=== PATIENT | female | born 1985 | race American Indian/Alaskan Native ===

== ENCOUNTER 2019-09-05 09:33 | Inpatient (IN) | payer OTHER ==
[2019-09-05] MEDS ORDERED: TERBUTALINE 1 MG/1 ML INJ SUB-Q PRN (10:11)
[2019-09-05] MEDS ORDERED: LIDOCAINE (2%) 20 MG/1 ML VIAL 20 ML MDV INFILTRATI ONE (10:11)
[2019-09-05] MEDS ORDERED: ONDANSETRON 4 MG/2 ML INJ IV PRN (10:11)
[2019-09-05] MEDS ORDERED: ePHEDrine SULFATE 50 MG/1 ML INJ IV PRN ×2 (10:11→16:14)
[2019-09-05] MEDS ORDERED: MINERAL OIL 30 ML ORAL LIQD PO PRN (10:11)
[2019-09-05] MEDS ORDERED: LACTATED RINGERS 1,000 ML IV SCH (11:00)
[2019-09-05 11:32] LABS: Hematocrit 28.5 % (30.3-42.9); Mean Corpuscular HGB Conc 32 % (30-34); Mean Corpuscular Volume 74 fl (79-97); Platelet Count 291 K/mm3 (140-440); Red Blood Count 3.84 M/mm3 (3.65-5.03); Red Cell Distribution Width 18.7 % (13.2-15.2)
--- NOTE | 2019-09-05 11:34 | History and Physical Report ---
History of Present Illness Date of examination: 09/05/19 Date of admission: 09/05/19 09:33 Chief complaint: IOL for IUGR and HTN, patient has been noncompliant with care History of present illness: EDC Calculations LMP: 09/26/2019 Past History : 4 Term Births: 2 Living Children: 1 Para: 2 Aborta: 1 Elect. Ab: 1 # 1 Delivery date: 07/28/2010 Weeks Gestation: 39 labor: no Delivery type: Anesthesia type: epidural Delivery location: [place] Sex: Female weight: 6-11 Comments: no complications # 2 Delivery date: 2012 Weeks Gestation: term Delivery type: Delivery location: [facility] Sex: Male weight: 7#7 # 3 Delivery date: 2013 Delivery type: EAB Past Medical History: Anxiety Fibroids HTN - on labetalol Past Surgical History: Reviewed history from 07/15/2012 and no changes required: oral Past Medical History Abnormal PAP: positive KATHI Exposure: negative Infertility: negative Uterine Anomaly: negative Uterine Surgery (not C/S): negative Other Gynecologic Problems: negative Medical History Comments: Pt is followed by [facility] annually d/t FH Family Hx: No Family History of Breast Cancer No Family History of Colon Cancer No Family History of Ovarvian Cancer No Family History of DVT/PE on OCP Mother passed of heart attack @ 40 Social Hx: Patient is no ETOH/Drugs/Smoking no pets not working Infection History Hx of STD: none HIV Risk Eval: low risk Hepatitis B Risk Eval: low risk Personal hx. of genital herpes: no Genetic History ADVANCED MATERNAL AGE Congenital Heart Defect: Mom: no Dad: no Suze Disease: Mom: no Dad: no Thalassemia Mom: no Dad: no Neural Tube Defect Mom: no Dad: no Down's Syndrome Mom: no Dad: no Jimy-Sachs Mom: no Dad: no Sickle Cell Disease/Trait Mom: no Dad: no Hemophilia Mom: no Dad: no Muscular Dystrophy Mom: no Dad: no Cystic Fibrosis Mom: no Dad: no [place] Chorea Mom: no Dad: no Mental Retardation Mom: no Dad: no Fragile X Mom: no Dad: no Other Genetic/Chromosomal Disorder Mom: no Dad: no Child w/other defect Mom: no Dad: no Enviromental Exposures Xray Exposure: no Medication, drug, or alcohol use since LMP: no Chemical/Other Exposure: no Exposure to Cat Liter: no Hx of Parvovirus (Fifth Disease): no Occupational Exposure to Children: none Active Medications (reviewed today): LO LOESTRIN 10/03 (NORETHIN DEMETRIUS-ETH ESTRAD-FE TABS) () 1 po qd Current Allergies: No known allergies Past History Past Medical History: other (see HPI) Past Surgical History: other (see HPI) APPEALS EXAMINER History: other (see HPI) Family/Genetic History: other (see HPI) - Obstetrical History Expected Date of Delivery: 09/26/19 Actual Gestation: 37 Week(s) 0 Day(s) : 4 Para: 2 Hx # Term Pregnancies: 2 Number of Pregnancies: 0 Spontaneous Abortions: 0 Induced : 1 Number of Living Children: 2 Medications and Allergies Allergies Allergy/AdvReac Type Severity Reaction Status Date / Time No Known Allergies Allergy Unverified 09/05/19 11:07 Active Meds: Active Medications Ephedrine Sulfate (Ephedrine Sulfate) 10 mg IV Q2M PRN PRN Reason: Hypotension Oxytocin/Sodium Chloride (Pitocin/Ns 20 Unit/1000ml Drip) 20 units in 1,000 mls @ 125 mls/hr IV DIRECT MAGY Oxytocin/Sodium Chloride (Pitocin/Ns 30 Unit/500ml) 30 units in 500 mls @ 4 mls/hr IV TITR MAGY; Protocol Lactated Ringer's (Lactated Ringers) 1,000 mls @ 125 mls/hr IV DIRECT MAGY Mineral Oil (Mineral Oil) 30 ml PO QHS PRN PRN Reason: Constipation Ondansetron HCl (Zofran) 4 mg IV Q8H PRN PRN Reason: Nausea And Vomiting Terbutaline Sulfate (Brethine) 0.25 mg SUB-Q ONCE PRN PRN Reason: Hyperstimulation/Hypertonicity Review of Systems All systems: negative - Physical Exam Breasts: Positive: normal Cardiovascular: Regular rate Lungs: Positive: Normal air movement Abdomen: Positive: normal appearance, soft Genitourinary (Female): Positive: normal external genitalia, normal perenium Vulva: both: normal Vagina: Positive: normal moisture Deep Tendon Reflex Grade: Normal +2 - Obstetrical FHR: category 1 Uterine Contraction Monitor Mode: External Cervical Dilatation: 3 Cervical Effacement Percentage: 50 station: -1 Uterine Contraction Pattern: Irregular Uterine Tone Measurement Phase: Contraction Uterine Contraction Intensity: Moderate Results Result Diagrams: 09/05/19 10:20 All other labs normal. Assessment and Plan Admission orders in EMR, will proceed with pitocin induction as cervix is favorable. - Patient Problems (1) 37 weeks gestation of Current Visit: Yes Status: Acute (2) HTN (hypertension) Current Visit: Yes Status: Acute Qualifiers: Hypertension type: essential hypertension Qualified Code(s): I10 - Essential (primary) hypertension Plan to address problem: Continue Labtalol PO 200mg BID Monitor b/pclosely monitor for s/s pre-e (3) IUGR (intrauterine growth restriction) Current Visit: Yes Status: Acute Plan to address problem: close monitoring notifiy NICU (4) Noncompliance Current Visit: Yes Status: Acute (5) Obesity affecting Current Visit: Yes Status: Acute
[2019-09-05] MEDS: OXYTOCIN DRIP 30 UNITS/500 ML BAG IV SCH ×4 (11:50→20:48)
--- NOTE | 2019-09-05 11:57 | Event Note ---
Date: 09/05/19 discussed pros and cons of arom, patient elects for AROM. Moderate amount of clear fluid noted. IUPC and ISE placed without difficulty.
[2019-09-05] MEDS ORDERED: SODIUM CHLORIDE P/F VIAL 10 ML 10 ML ONE (15:59)
[2019-09-05] MEDS ORDERED: DEXMEDETOMIDINE 200 MCG/2 ML VIAL IV ONE (16:00)
[2019-09-05] MEDS ORDERED: NALOXONE 2 MG/2 ML INJ IV PRN (16:14)
--- NOTE | 2019-09-05 16:15 | Anesthesia Consultation ---
Anesthesia Consult and Med Hx Date of service: 09/05/19 - Airway Anesthetic Teeth Evaluation: Chipped ROM Head & Neck: Adequate Mental/Hyoid Distance: Adequate Mallampati Class: Class II Intubation Access Assessment: Probably Good - Pulmonary Exam CTA: Yes - Cardiac Exam Cardiac Exam: RRR - Pre-Operative Health Status ASA Pre-Surgery Classification: ASA3 Proposed Anesthetic Plan: Epidural - Pulmonary Hx Asthma: No COPD: No Hx Pneumonia: No - Cardiovascular System Hx Hypertension: Yes - Central Nervous System Hx Seizures: No Hx Psychiatric Problems: No - Endocrine Hx Renal Disease: No Hx End Stage Renal Disease: No Hx Hypothyroidism: No Hx Hyperthyroidism: No - Hematic Hx Anemia: Yes Hx Sickle Cell Disease: No - Other Systems Hx Alcohol Use: No Hx Obesity: Yes
--- NOTE | 2019-09-05 16:40 | Progress Note ---
Assessment and Plan RN advised to restart pitocin as it was turned off during epidural placement, ctx have become mild and irregular. continue to titrate pitocin as needed for adequate labor. anticipate . pelvis feels adequate for size of (~5.5lbs by adry although difficult d/t maternal obesity.) - Patient Problems (1) 37 weeks gestation of Current Visit: Yes Status: Acute (2) HTN (hypertension) Current Visit: Yes Status: Acute Qualifiers: Hypertension type: essential hypertension Qualified Code(s): I10 - Essential (primary) hypertension Plan to address problem: Continue Labtalol PO 200mg BID Monitor b/pclosely monitor for s/s pre-e (3) IUGR (intrauterine growth restriction) Current Visit: Yes Status: Acute Plan to address problem: close monitoring notifiy NICU (4) Noncompliance Current Visit: Yes Status: Acute (5) Obesity affecting Current Visit: Yes Status: Acute Subjective - Subjective Date of service: 09/05/19 Principal diagnosis: IUP @ 37w0d IOL for IUGR and CHTN Interval history: EDC Calculations LMP: 09/26/2019 Past History : 4 Term Births: 2 Living Children: 1 Para: 2 Aborta: 1 Elect. Ab: 1 # 1 Delivery date: 07/28/2010 Weeks Gestation: 39 labor: no Delivery type: Anesthesia type: epidural Delivery location: [place] Sex: Female weight: 6-11 Comments: no complications # 2 Delivery date: 2012 Weeks Gestation: term Delivery type: Delivery location: [facility] Infant Sex: Male weight: 7#7 # 3 Delivery date: 2013 Delivery type: EAB Past Medical History: Anxiety Fibroids HTN - on labetalol Past Surgical History: Reviewed history from 07/15/2012 and no changes required: oral Past Medical History Abnormal PAP: positive KATHI Exposure: negative Infertility: negative Uterine Anomaly: negative Uterine Surgery (not C/S): negative Other Gynecologic Problems: negative Medical History Comments: Pt is followed by [facility] annually d/t FH Family Hx: No Family History of Breast Cancer No Family History of Colon Cancer No Family History of Ovarvian Cancer No Family History of DVT/PE on OCP Mother passed of heart attack @ 40 Social Hx: Patient is no ETOH/Drugs/Smoking no pets not working Infection History Hx of STD: none HIV Risk Eval: low risk Hepatitis B Risk Eval: low risk Personal hx. of genital herpes: no Genetic History ADVANCED MATERNAL AGE Congenital Heart Defect: Mom: no Dad: no Suze Disease: Mom: no Dad: no Thalassemia Mom: no Dad: no Neural Tube Defect Mom: no Dad: no Down's Syndrome Mom: no Dad: no Jimy-Sachs Mom: no Dad: no Sickle Cell Disease/Trait Mom: no Dad: no Hemophilia Mom: no Dad: no Muscular Dystrophy Mom: no Dad: no Cystic Fibrosis Mom: no Dad: no [place] Chorea Mom: no Dad: no Mental Retardation Mom: no Dad: no Fragile X Mom: no Dad: no Other Genetic/Chromosomal Disorder Mom: no Dad: no Child w/other defect Mom: no Dad: no Enviromental Exposures Xray Exposure: no Medication, drug, or alcohol use since LMP: no Chemical/Other Exposure: no Exposure to Cat Liter: no Hx of Parvovirus (Fifth Disease): no Occupational Exposure to Children: none Active Medications (reviewed today): LO LOESTRIN 10/03 (NORETHIN DEMETRIUS-ETH ESTRAD-FE TABS) () 1 po qd Current Allergies: No known allergies Patient reports: no new complaints (comfortable s/p epidural) Objective - Vital Signs Vital Signs: Vital Signs - 12hr 09/05/19 09/05/19 09/05/19 12:02 12:14 15:33 Temperature 98.7 F Pulse Rate 105 H 105 H 100 H Respiratory 16 Rate Blood Pressure 143/87 Blood Pressure 143/87 [Left] O2 Sat by Pulse 98 Oximetry 09/05/19 09/05/19 09/05/19 15:38 15:43 15:48 Temperature Pulse Rate 97 H 102 H 97 H Respiratory Rate Blood Pressure Blood Pressure [Left] O2 Sat by Pulse 99 99 98 Oximetry 09/05/19 09/05/19 09/05/19 15:53 15:58 16:03 Temperature Pulse Rate 100 H 111 H 111 H Respiratory Rate Blood Pressure Blood Pressure [Left] O2 Sat by Pulse 98 99 99 Oximetry 09/05/19 09/05/19 09/05/19 16:07 16:08 16:10 Temperature Pulse Rate 95 H 101 H 98 H Respiratory Rate Blood Pressure 165/95 155/82 Blood Pressure [Left] O2 Sat by Pulse 99 Oximetry 09/05/19 09/05/19 09/05/19 16:12 16:13 16:15 Temperature Pulse Rate 96 H 98 H 93 H Respiratory Rate Blood Pressure 144/78 134/76 Blood Pressure [Left] O2 Sat by Pulse 99 Oximetry 09/05/19 09/05/19 09/05/19 16:18 16:22 16:23 Temperature Pulse Rate 94 H 95 H 92 H Respiratory Rate Blood Pressure 98/53 Blood Pressure [Left] O2 Sat by Pulse 99 99 Oximetry 09/05/19 09/05/19 09/05/19 16:25 16:28 16:33 Temperature Pulse Rate 81 89 91 H Respiratory Rate Blood Pressure 126/67 100/55 Blood Pressure [Left] O2 Sat by Pulse 98 99 Oximetry - Exam Breasts: normal Cardiovascular: Regular rate Lungs: Normal air movement Abdomen: Present: normal appearance, soft Vulva: both: normal Uterus: Present: normal FHR: category 1 Uterine Contraction Monitor Mode: Internal Cervical Dilatation: 6 Cervical Effacement Percentage: 50 station: -1 Uterine Contraction Frequency (min): 2-5 Uterine Contraction Duration: 50 Uterine Contraction Pattern: Regular Uterine Tone Measurement Phase: Contraction Uterine Contraction Intensity: Mild Extremities: normal Deep Tendon Reflex Grade: Normal +2 - Labs Labs: Abnormal Labs 09/05/19 10:20 WBC 11.2 H Hgb 9.0 L Hct 28.5 L MCV 74 L MCH 24 L RDW 18.7 H Laboratory Results - last 24 hr 09/05/19 09/05/19 09/05/19 10:20 10:20 10:20 WBC 11.2 H RBC 3.84 Hgb 9.0 L Hct 28.5 L MCV 74 L MCH 24 L MCHC 32 RDW 18.7 H Plt Count 291 Syphilis IgG Antibody Non-reactive Blood Type O POSITIVE Antibody Screen Negative
[2019-09-05] MEDS ORDERED: fentaNYL-BUPIV 2 MCG/ML-0.125% 200 MCG/100 ML BAG EPIDURAL SCH (17:00)
[2019-09-05] MEDS ORDERED: SODIUM CHLORIDE 0.9% 1000 ML 1,000 ML ONE (17:34)
--- NOTE | 2019-09-05 17:58 | Progress Note ---
Assessment and Plan - Patient Problems (1) 37 weeks gestation of Current Visit: Yes Status: Acute (2) HTN (hypertension) Current Visit: Yes Status: Acute Qualifiers: Hypertension type: essential hypertension Qualified Code(s): I10 - Essential (primary) hypertension (3) IUGR (intrauterine growth restriction) Current Visit: Yes Status: Acute (4) Noncompliance Current Visit: Yes Status: Acute (5) Obesity affecting Current Visit: Yes Status: Acute Subjective - Subjective Date of service: 09/05/19 Principal diagnosis: IUP @ 37w0d IOL for IUGR and CHTN Patient reports: movement normal, no new complaints (comfortable s/p epidural) Objective - Vital Signs Vital Signs: Vital Signs - 12hr 09/05/19 09/05/19 09/05/19 12:02 12:14 15:33 Temperature 98.7 F Pulse Rate 105 H 105 H 100 H Respiratory 16 Rate Blood Pressure 143/87 Blood Pressure 143/87 [Left] O2 Sat by Pulse 98 Oximetry 09/05/19 09/05/19 09/05/19 15:38 15:43 15:48 Temperature Pulse Rate 97 H 102 H 97 H Respiratory Rate Blood Pressure Blood Pressure [Left] O2 Sat by Pulse 99 99 98 Oximetry 09/05/19 09/05/19 09/05/19 15:53 15:58 16:03 Temperature Pulse Rate 100 H 111 H 111 H Respiratory Rate Blood Pressure Blood Pressure [Left] O2 Sat by Pulse 98 99 99 Oximetry 09/05/19 09/05/19 09/05/19 16:07 16:08 16:10 Temperature Pulse Rate 95 H 101 H 98 H Respiratory Rate Blood Pressure 165/95 155/82 Blood Pressure [Left] O2 Sat by Pulse 99 Oximetry 09/05/19 09/05/19 09/05/19 16:12 16:13 16:15 Temperature Pulse Rate 96 H 98 H 93 H Respiratory Rate Blood Pressure 144/78 134/76 Blood Pressure [Left] O2 Sat by Pulse 99 Oximetry 09/05/19 09/05/19 09/05/19 16:18 16:22 16:23 Temperature Pulse Rate 94 H 95 H 92 H Respiratory Rate Blood Pressure 98/53 Blood Pressure [Left] O2 Sat by Pulse 99 99 Oximetry 09/05/19 09/05/19 09/05/19 16:25 16:28 16:33 Temperature Pulse Rate 81 89 91 H Respiratory Rate Blood Pressure 126/67 100/55 Blood Pressure [Left] O2 Sat by Pulse 98 99 Oximetry 09/05/19 09/05/19 09/05/19 16:38 16:43 16:47 Temperature Pulse Rate 91 H 86 85 Respiratory Rate Blood Pressure 105/59 Blood Pressure [Left] O2 Sat by Pulse 99 98 Oximetry 09/05/19 09/05/19 09/05/19 16:48 16:53 16:58 Temperature Pulse Rate 88 85 96 H Respiratory Rate Blood Pressure Blood Pressure [Left] O2 Sat by Pulse 100 100 98 Oximetry 09/05/19 09/05/19 09/05/19 17:01 17:03 17:08 Temperature Pulse Rate 93 H 93 H 105 H Respiratory Rate Blood Pressure 120/56 Blood Pressure [Left] O2 Sat by Pulse 100 100 Oximetry 09/05/19 09/05/19 09/05/19 17:13 17:17 17:18 Temperature Pulse Rate 105 H 133 H Respiratory Rate Blood Pressure 190/86 Blood Pressure [Left] O2 Sat by Pulse 100 80 L Oximetry 09/05/19 09/05/19 09/05/19 17:19 17:20 17:24 Temperature Pulse Rate 128 H 122 H 129 H Respiratory Rate Blood Pressure 175/72 Blood Pressure [Left] O2 Sat by Pulse 100 100 Oximetry 09/05/19 09/05/19 09/05/19 17:29 17:30 17:34 Temperature Pulse Rate 117 H 112 H 113 H Respiratory Rate Blood Pressure 172/74 Blood Pressure [Left] O2 Sat by Pulse 100 100 Oximetry 09/05/19 09/05/19 09/05/19 17:35 17:39 17:44 Temperature Pulse Rate 112 H 114 H 115 H Respiratory Rate Blood Pressure 171/74 170/79 Blood Pressure [Left] O2 Sat by Pulse 100 100 Oximetry - Exam FHR: category 2 FHR comments: call for audible decelerations, patient was in knee chest postitions, pitocin off, IVF bolus given, cervix 7.5/80/0 now with significant bloody show. FHT's 110-120's with good variability and variable decel with contractions. Patient now semifowler position. Will observe closely. Discussed possible ? c/s if no cervical change with deterioriation of fht's. Consents given for review. Questions answered. Cervical Dilatation: 7.5 Cervical Effacement Percentage: 80 station: 0 Uterine Contraction Pattern: Regular - Labs Labs: Abnormal Labs 09/05/19 10:20 WBC 11.2 H Hgb 9.0 L Hct 28.5 L MCV 74 L MCH 24 L RDW 18.7 H Laboratory Results - last 24 hr 09/05/19 09/05/19 09/05/19 10:20 10:20 10:20 WBC 11.2 H RBC 3.84 Hgb 9.0 L Hct 28.5 L MCV 74 L MCH 24 L MCHC 32 RDW 18.7 H Plt Count 291 Syphilis IgG Antibody Non-reactive Blood Type O POSITIVE Antibody Screen Negative
[2019-09-05] MEDS ORDERED: BICITRA ORAL LIQD 30ML ONE (18:00)
[2019-09-05] MEDS ORDERED: ceFAZolin/Water 2 GM/20 ML 0 GM/0 ML SYRINGE IV ONE (18:00)
[2019-09-05] MEDS ORDERED: FAMOTIDINE 20 MG/2 ML INJ IV ONE (18:00)
[2019-09-05] MEDS ORDERED: METOCLOPRAMIDE 10 MG/2 ML INJ ONE (18:00)
--- NOTE | 2019-09-05 18:32 | Event Note ---
Date: 09/05/19 Strip now cat 1, much improved, will continue close observation, will consider restarting pitocin if fht's remain cat 1 and no cervical change
[2019-09-05 18:58] LABS: Bilirubin,Urine NEG (Negative); Blood,Urine LG (Negative); Color,Urine Yellow (Yellow); Mucus,Urine FEW /HPF; Protein,Urine <15 mg/dL mg/dL (Negative); Urobilinogen,Urine < 2.0 mg/dL (<2.0)
[2019-09-05 19:03] LABS: Amphetamine Screen,Urine PRESUMPTIVE NEGATIVE; Benzodiazepines Screen,Urine PRESUMPTIVE NEGATIVE; Cannabinoid Screen,Urine PRESUMPTIVE NEGATIVE; Cocaine Screen,Urine PRESUMPTIVE NEGATIVE; Methadone Screen,Urine PRESUMPTIVE NEGATIVE; Opiate Screen,Urine PRESUMPTIVE NEGATIVE
[2019-09-05 19:17] LABS: Alanine Aminotransferase 7 units/L (7-56); Uric Acid 3.5 mg/dL (3.5-7.6)
--- NOTE | 2019-09-05 19:54 | Progress Note ---
Assessment and Plan Restart pitocin - Patient Problems (1) 37 weeks gestation of Current Visit: Yes Status: Acute (2) HTN (hypertension) Current Visit: Yes Status: Acute Qualifiers: Hypertension type: essential hypertension Qualified Code(s): I10 - Essential (primary) hypertension (3) IUGR (intrauterine growth restriction) Current Visit: Yes Status: Acute (4) Noncompliance Current Visit: Yes Status: Acute (5) Obesity affecting Current Visit: Yes Status: Acute Subjective - Subjective Date of service: 09/05/19 Principal diagnosis: IUP @ 37w0d IOL for IUGR and CHTN Patient reports: movement normal, no new complaints (comfortable s/p epidural) Objective - Vital Signs Vital Signs: Vital Signs - 12hr 09/05/19 09/05/19 09/05/19 12:02 12:14 15:33 Temperature 98.7 F Pulse Rate 105 H 105 H 100 H Respiratory 16 Rate Blood Pressure 143/87 Blood Pressure 143/87 [Left] O2 Sat by Pulse 98 Oximetry 09/05/19 09/05/19 09/05/19 15:38 15:43 15:48 Temperature Pulse Rate 97 H 102 H 97 H Respiratory Rate Blood Pressure Blood Pressure [Left] O2 Sat by Pulse 99 99 98 Oximetry 09/05/19 09/05/19 09/05/19 15:53 15:58 16:03 Temperature Pulse Rate 100 H 111 H 111 H Respiratory Rate Blood Pressure Blood Pressure [Left] O2 Sat by Pulse 98 99 99 Oximetry 09/05/19 09/05/19 09/05/19 16:07 16:08 16:10 Temperature Pulse Rate 95 H 101 H 98 H Respiratory Rate Blood Pressure 165/95 155/82 Blood Pressure [Left] O2 Sat by Pulse 99 Oximetry 09/05/19 09/05/19 09/05/19 16:12 16:13 16:15 Temperature Pulse Rate 96 H 98 H 93 H Respiratory Rate Blood Pressure 144/78 134/76 Blood Pressure [Left] O2 Sat by Pulse 99 Oximetry 09/05/19 09/05/19 09/05/19 16:18 16:22 16:23 Temperature Pulse Rate 94 H 95 H 92 H Respiratory Rate Blood Pressure 98/53 Blood Pressure [Left] O2 Sat by Pulse 99 99 Oximetry 12/13/19 12/13/19 12/13/19 16:25 16:28 16:33 Temperature Pulse Rate 81 89 91 H Respiratory Rate Blood Pressure 126/67 100/55 Blood Pressure [Left] O2 Sat by Pulse 98 99 Oximetry 09/05/19 09/05/19 09/05/19 16:38 16:43 16:47 Temperature Pulse Rate 91 H 86 85 Respiratory Rate Blood Pressure 105/59 Blood Pressure [Left] O2 Sat by Pulse 99 98 Oximetry 09/05/19 09/05/19 09/05/19 16:48 16:53 16:58 Temperature Pulse Rate 88 85 96 H Respiratory Rate Blood Pressure Blood Pressure [Left] O2 Sat by Pulse 100 100 98 Oximetry 09/05/19 09/05/19 09/05/19 17:01 17:03 17:08 Temperature Pulse Rate 93 H 93 H 105 H Respiratory Rate Blood Pressure 120/56 Blood Pressure [Left] O2 Sat by Pulse 100 100 Oximetry 09/05/19 09/05/19 09/05/19 17:13 17:17 17:18 Temperature Pulse Rate 105 H 133 H Respiratory Rate Blood Pressure 190/86 Blood Pressure [Left] O2 Sat by Pulse 100 80 L Oximetry 09/05/19 09/05/19 09/05/19 17:19 17:20 17:24 Temperature Pulse Rate 128 H 122 H 129 H Respiratory Rate Blood Pressure 175/72 Blood Pressure [Left] O2 Sat by Pulse 100 100 Oximetry 09/05/19 09/05/19 09/05/19 17:29 17:30 17:34 Temperature Pulse Rate 117 H 112 H 113 H Respiratory Rate Blood Pressure 172/74 Blood Pressure [Left] O2 Sat by Pulse 100 100 Oximetry 09/05/19 09/05/19 09/05/19 17:35 17:39 17:44 Temperature Pulse Rate 112 H 114 H 115 H Respiratory Rate Blood Pressure 171/74 170/79 Blood Pressure [Left] O2 Sat by Pulse 100 100 Oximetry 09/05/19 09/05/19 09/05/19 17:49 17:54 17:59 Temperature Pulse Rate 115 H 109 H 111 H Respiratory Rate Blood Pressure Blood Pressure [Left] O2 Sat by Pulse 100 100 100 Oximetry 09/05/19 09/05/19 09/05/19 18:00 18:04 18:09 Temperature Pulse Rate 111 H 109 H 108 H Respiratory Rate Blood Pressure 150/81 Blood Pressure [Left] O2 Sat by Pulse 100 100 Oximetry 09/05/19 09/05/19 09/05/19 18:14 18:15 18:19 Temperature Pulse Rate 113 H 109 H 112 H Respiratory Rate Blood Pressure 160/85 Blood Pressure [Left] O2 Sat by Pulse 100 100 Oximetry 09/05/19 09/05/19 09/05/19 18:20 18:24 18:29 Temperature Pulse Rate 110 H 108 H 110 H Respiratory Rate Blood Pressure 161/90 Blood Pressure [Left] O2 Sat by Pulse 100 100 Oximetry 09/05/19 09/05/19 09/05/19 18:34 18:39 18:44 Temperature Pulse Rate 114 H 107 H 110 H Respiratory Rate Blood Pressure 148/82 Blood Pressure [Left] O2 Sat by Pulse 100 100 100 Oximetry 09/05/19 09/05/19 09/05/19 18:47 18:49 18:54 Temperature Pulse Rate 114 H 109 H 105 H Respiratory Rate Blood Pressure 148/82 Blood Pressure [Left] O2 Sat by Pulse 100 99 Oximetry 09/05/19 09/05/19 09/05/19 18:59 19:01 19:04 Temperature Pulse Rate 107 H 105 H 106 H Respiratory Rate Blood Pressure 147/76 Blood Pressure [Left] O2 Sat by Pulse 100 100 Oximetry 09/05/19 09/05/19 09/05/19 19:09 19:14 19:15 Temperature Pulse Rate 106 H 112 H 105 H Respiratory Rate Blood Pressure 148/83 Blood Pressure [Left] O2 Sat by Pulse 99 99 Oximetry 09/05/19 09/05/19 09/05/19 19:19 19:24 19:29 Temperature Pulse Rate 110 H 118 H 111 H Respiratory Rate Blood Pressure Blood Pressure [Left] O2 Sat by Pulse 100 100 100 Oximetry 09/05/19 09/05/19 09/05/19 19:30 19:34 19:39 Temperature Pulse Rate 108 H 109 H 110 H Respiratory Rate Blood Pressure 137/71 Blood Pressure [Left] O2 Sat by Pulse 99 99 Oximetry 09/05/19 09/05/19 09/05/19 19:44 19:45 19:49 Temperature Pulse Rate 106 H 107 H 116 H Respiratory Rate Blood Pressure 130/69 Blood Pressure [Left] O2 Sat by Pulse 100 100 Oximetry - Exam Breasts: deferred Lungs: Normal air movement Abdomen: Present: soft (obese) Vulva: both: normal Uterus: Present: fundal height above umbilicus FHR: category 1 Cervical Dilatation: 7.5 Cervical Effacement Percentage: 70 station: -1 Uterine Contraction Pattern: Irregular Uterine Contraction Intensity: Mild Extremities: normal - Labs Labs: Abnormal Labs 09/05/19 09/05/19 10:20 18:23 WBC 11.2 H Hgb 9.0 L Hct 28.5 L MCV 74 L MCH 24 L RDW 18.7 H Creatinine 0.6 L Lactate Dehydrogenase 183 H Laboratory Results - last 24 hr 09/05/19 09/05/19 09/05/19 10:20 10:20 10:20 WBC 11.2 H RBC 3.84 Hgb 9.0 L Hct 28.5 L MCV 74 L MCH 24 L MCHC 32 RDW 18.7 H Plt Count 291 Creatinine Estimated GFR Uric Acid AST ALT Lactate Dehydrogenase Urine Color Urine Turbidity Urine pH Ur Specific Oral Urine Protein Urine Glucose (UA) Urine Ketones Urine Blood Urine Nitrite Urine Bilirubin Urine Urobilinogen Ur Leukocyte Esterase Urine WBC (Auto) Urine RBC (Auto) U Epithel Cells (Auto) Urine Mucus Urine Opiates Screen Urine Methadone Screen Ur Barbiturates Screen Ur Phencyclidine Scrn Ur Amphetamines Screen U Benzodiazepines Scrn Urine Cocaine Screen U Marijuana (THC) Screen Drugs of Abuse Note Syphilis IgG Antibody Non-reactive Blood Type O POSITIVE Antibody Screen Negative 09/05/19 09/05/19 09/05/19 18:23 18:35 18:35 WBC RBC Hgb Hct MCV MCH MCHC RDW Plt Count Creatinine 0.6 L Estimated GFR > 60 Uric Acid 3.5 AST 12 ALT 7 Lactate Dehydrogenase 183 H Urine Color Yellow Urine Turbidity Clear Urine pH 6.0 Ur Specific Oral 1.014 Urine Protein <15 mg/dl Urine Glucose (UA) Neg Urine Ketones Neg Urine Blood Lg Urine Nitrite Neg Urine Bilirubin Neg Urine Urobilinogen < 2.0 Ur Leukocyte Esterase Neg Urine WBC (Auto) 2.0 Urine RBC (Auto) 138.0 U Epithel Cells (Auto) 1.0 Urine Mucus Few Urine Opiates Screen Presumptive negative Urine Methadone Screen Presumptive negative Ur Barbiturates Screen Presumptive negative Ur Phencyclidine Scrn Presumptive negative Ur Amphetamines Screen Presumptive negative U Benzodiazepines Scrn Presumptive negative Urine Cocaine Screen Presumptive negative U Marijuana (THC) Screen Presumptive negative Drugs of Abuse Note Disclamer Syphilis IgG Antibody Blood Type Antibody Screen
[2019-09-05] MEDS ORDERED: ACETAMINOPHEN 325 MG TAB ONE (21:52)
[2019-09-05] MEDS: OXYTOCIN 20 UNIT/1000ML DRIP 20 UNITS/1,000 ML BAG IV SCH (23:30)
[2019-09-05] MEDS ORDERED: OXYTOCIN 10 UNIT/1 ML INJ ONE (23:33)
[2019-09-05] MEDS ORDERED: CARBOPROST TROMETHAMINE 250 MCG/1 ML INJ IM ONE (23:33)
[2019-09-06] MEDS ORDERED: OXYTOCIN 10 UNIT/1 ML INJ IM ONE (00:13)
--- NOTE | 2019-09-06 00:18 | Procedure Note ---
OB Delivery Note - Delivery Date of Delivery: 09/05/19 Surgeon: POWER JOSHUA Estimated blood loss: 500cc - Vaginal Delivery presentation: vertex Delivery position: OA Delivery induction: oxytocin Delivery augmentation: rupture of membranes, pitocin Delivery monitor: external FHT, external uterine, internal FHT, internal uterine Route of delivery: Delivery placenta: spontaneous (intact) Episiotomy: none Delivery laceration: none Anesthesia: epidural - A at 1 minute: 8 at 5 minutes: 9 Infant Gender: Male (4lbs 12oz)
[2019-09-06] MEDS: OXYTOCIN 20 UNIT/1000ML DRIP 20 UNITS/1,000 ML BAG IV SCH (00:34)
[2019-09-06] MEDS ORDERED: ACETAMINOPHEN 325 MG TAB PO PRN (02:13)
[2019-09-06] MEDS ORDERED: PROMETHAZINE 25 MG TAB PO PRN (02:13)
[2019-09-06] MEDS ORDERED: WITCH HAZEL/ GLYCERIN PAD TP PRN (02:13)
[2019-09-06] MEDS ORDERED: diphenhydrAMINE 25 MG CAP PO PRN (02:13)
[2019-09-06] MEDS ORDERED: LANOLIN/ZINC/DIMETHICONE (LANSINOH) 7 GM TP PRN (02:13)
[2019-09-06] MEDS ORDERED: miSOPROStol 200 MCG TAB PR PRN (02:13)
[2019-09-06] MEDS ORDERED: ONDANSETRON 4 MG/2 ML INJ IV PRN (02:13)
[2019-09-06] MEDS ORDERED: MAGNESIUM HYDROXIDE (MOM) ORAL LIQD UDC PO PRN (02:13)
[2019-09-06] MEDS ORDERED: PROMETHAZINE 25 MG RECT SUPP PR PRN (02:13)
[2019-09-06] MEDS: IBUPROFEN 600 MG TAB PO SCH ×4 (03:17→23:12)
--- NOTE | 2019-09-06 08:20 | Progress Note ---
Assessment and Plan patient doing well, c/o having anxiety attack this morning. she reports this is an ongoing problem. discussed she would like to breastfeed - teaching provided for medication to help with depression and anxiety. Will also get mental heal consult. H&H ordered at noon, b/p's 130/70-80's. - Patient Problems (1) HTN (hypertension) Current Visit: Yes Status: Acute Qualifiers: Hypertension type: essential hypertension Qualified Code(s): I10 - Essential (primary) hypertension Plan to address problem: Continue Labtalol PO 200mg BID Monitor b/pclosely monitor for s/s pre-e (2) Anxiety Current Visit: Yes Status: Acute Plan to address problem: will start zoloft (3) (spontaneous vaginal delivery) Current Visit: Yes Status: Acute Plan to address problem: continue pathway Subjective - Subjective Date of service: 09/06/19 Principal diagnosis: day #1 s/p Interval history: EDC Calculations LMP: 09/26/2019 Past History : 4 Term Births: 2 Living Children: 1 Para: 2 Aborta: 1 Elect. Ab: 1 # 1 Delivery date: 07/28/2010 Weeks Gestation: 39 labor: no Delivery type: Anesthesia type: epidural Delivery location: [place] Inf[place] Sex: Female weight: 6-11 Comments: no complications # 2 Delivery date: 2012 Weeks Gestation: term Delivery type: Delivery location: [facility] Infant Sex: Male weight: 7#7 # 3 Delivery date: 2013 Delivery type: EAB Past Medical History: Anxiety Fibroids HTN - on labetalol Past Surgical History: Reviewed history from 07/15/2012 and no changes required: oral Past Medical History Abnormal PAP: positive KATHI Exposure: negative Infertility: negative Uterine Anomaly: negative Uterine Surgery (not C/S): negative Other Gynecologic Problems: negative Medical History Comments: Pt is followed by [facility] annually d/t FH Family Hx: No Family History of Breast Cancer No Family History of Colon Cancer No Family History of Ovarvian Cancer No Family History of DVT/PE on OCP Mother passed of heart attack @ 40 Social Hx: Patient is no ETOH/Drugs/Smoking no pets not working Infection History Hx of STD: none HIV Risk Eval: low risk Hepatitis B Risk Eval: low risk Personal hx. of genital herpes: no Genetic History ADVANCED MATERNAL AGE Congenital Heart Defect: Mom: no Dad: no Suze Disease: Mom: no Dad: no Thalassemia Mom: no Dad: no Neural Tube Defect Mom: no Dad: no Down's Syndrome Mom: no Dad: no Jimy-Sachs Mom: no Dad: no Sickle Cell Disease/Trait Mom: no Dad: no Hemophilia Mom: no Dad: no Muscular Dystrophy Mom: no Dad: no Cystic Fibrosis Mom: no Dad: no [place] Chorea Mom: no Dad: no Mental Retardation Mom: no Dad: no Fragile X Mom: no Dad: no Other Genetic/Chromosomal Disorder Mom: no Dad: no Child w/other defect Mom: no Dad: no Enviromental Exposures Xray Exposure: no Medication, drug, or alcohol use since LMP: no Chemical/Other Exposure: no Exposure to Cat Liter: no Hx of Parvovirus (Fifth Disease): no Occupational Exposure to Children: none Active Medications (reviewed today): LO LOESTRIN 10 (NORETHIN DEMETRIUS-ETH ESTRAD-FE TABS) () 1 po qd Current Allergies: No known allergies Patient reports: appetite normal, voiding normally, pain well controlled, ambulating normally, no dizzy ambulation, no nauseated Henry: doing well, bottle feeding (breast and bottle feeding) Objective - Vital Signs Latest vital signs: Vital Signs Temp Pulse Resp BP BP Pulse Ox 09/06/19 03:17 18 09/06/19 02:18 97.9 F 99 H 18 137/84 98 09/06/19 02:03 58 L 75 L 09/06/19 02:01 108 H 137/87 09/06/19 01:59 115 H 80 L 09/06/19 01:54 147 H 89 09/06/19 01:48 104 H 81 L 09/06/19 01:44 100 H 99 09/06/19 01:39 103 H 99 09/06/19 01:37 106 H 136/84 09/06/19 01:34 108 H 98 09/06/19 01:29 103 H 99 09/06/19 01:24 109 H 100 09/06/19 01:19 105 H 99 09/06/19 01:14 109 H 99 09/06/19 01:09 109 H 99 09/06/19 01:07 108 H 134/77 09/06/19 01:04 102 H 99 09/06/19 00:59 106 H 99 09/06/19 00:54 105 H 99 09/06/19 00:49 103 H 99 09/06/19 00:44 106 H 100 09/06/19 00:39 107 H 100 09/06/19 00:34 106 H 100 09/06/19 00:30 104 H 136/76 09/06/19 00:29 106 H 100 09/06/19 00:24 102 H 100 09/06/19 00:19 105 H 100 09/06/19 00:15 104 H 136/77 09/06/19 00:14 109 H 100 09/06/19 00:09 109 H 100 09/06/19 00:04 105 H 100 09/06/19 00:00 103 H 133/74 09/05/19 23:59 109 H 100 09/05/19 23:54 104 H 100 09/05/19 23:49 101 H 100 09/05/19 23:45 106 H 136/76 09/05/19 23:44 110 H 100 09/05/19 23:39 110 H 100 09/05/19 23:34 110 H 100 09/05/19 23:30 99.7 F H 109 H 20 132/76 132/76 99 09/05/19 23:29 110 H 99 09/05/19 23:24 117 H 100 09/05/19 23:19 131 H 100 09/05/19 23:15 121 H 169/83 09/05/19 23:14 137 H 99 09/05/19 23:09 114 H 99 09/05/19 23:04 115 H 99 09/05/19 23:00 114 H 136/72 09/05/19 22:59 113 H 99 09/05/19 22:54 107 H 98 09/05/19 22:49 108 H 99 09/05/19 22:45 108 H 128/70 09/05/19 22:44 115 H 100 09/05/19 22:39 110 H 100 09/05/19 22:34 111 H 99 09/05/19 22:31 110 H 128/72 09/05/19 22:29 111 H 100 09/05/19 22:24 110 H 100 09/05/19 22:19 108 H 100 09/05/19 22:15 111 H 129/68 09/05/19 22:14 118 H 100 09/05/19 22:09 115 H 143/65 99 09/05/19 22:04 117 H 100 09/05/19 22:03 121 H 162/90 09/05/19 22:02 111 H 169/92 09/05/19 21:59 111 H 100 09/05/19 21:55 98.9 F 09/05/19 21:54 106 H 154/92 100 09/05/19 21:49 107 H 99 09/05/19 21:45 106 H 140/86 09/05/19 21:44 102 H 100 09/05/19 21:39 108 H 100 09/05/19 21:34 110 H 100 09/05/19 21:30 109 H 156/90 09/05/19 21:29 113 H 100 09/05/19 21:24 112 H 100 09/05/19 21:19 104 H 99 09/05/19 21:14 111 H 100 09/05/19 21:09 108 H 99 09/05/19 21:04 109 H 100 09/05/19 21:03 110 H 154/96 09/05/19 21:00 106 H 149/97 09/05/19 20:59 114 H 100 09/05/19 20:54 111 H 99 09/05/19 20:49 112 H 100 09/05/19 20:47 120 H 150/80 09/05/19 20:46 114 H 136/104 09/05/19 20:45 112 H 165/89 09/05/19 20:44 117 H 99 09/05/19 20:39 111 H 99 09/05/19 20:34 113 H 99 09/05/19 20:31 114 H 158/69 09/05/19 20:30 25 L 72 L 09/05/19 20:29 90 99 09/05/19 20:24 109 H 100 09/05/19 20:19 115 H 100 09/05/19 20:16 100 F H 116 H 24 129/77 158/69 100 09/05/19 20:14 108 H 99 09/05/19 20:09 109 H 99 09/05/19 20:04 107 H 100 09/05/19 20:00 109 H 151/77 12/13/19 19:59 107 H 100 09/05/19 19:54 111 H 99 09/05/19 19:49 116 H 100 / 19:45 107 H 130/69 1319 19:44 106 H 100 09/05/19 19:39 110 H 99 09/05/19 19:34 109 H 99 09/05/19 19:30 108 H 137/71 09/05/19 19:29 111 H 100 09/05/19 19:24 118 H 100 /1319 19:19 110 H 100 /19 19:15 105 H 148/83 09/05/19 19:14 112 H 99 09/05/19 19:09 106 H 99 09/05/19 19:04 106 H 100 09/05/19 19:01 105 H 147/76 09/05/19 18:59 107 H 100 09/05/19 18:54 105 H 99 09/05/19 18:49 109 H 100 09/05/19 18:47 114 H 148/82 09/05/19 18:44 110 H 148/82 100 09/05/19 18:39 107 H 100 09/05/19 18:34 114 H 100 19 18:29 110 H 100 19 18:24 108 H 100 19 18:20 110 H 161/90 09/05/19 18:19 112 H 100 09/05/19 18:15 109 H 160/85 09/05/19 18:14 113 H 100 09/05/19 18:09 108 H 100 09/05/19 18:04 109 H 100 19 18:00 111 H 150/81 19 17:59 111 H 100 19 17:54 109 H 100 19 17:49 115 H 100 09/05/19 17:44 115 H 170/79 100 09/05/19 17:39 114 H 100 19 17:35 112 H 171/74 09/05/19 17:34 113 H 100 19 17:30 112 H 172/74 /13/19 17:29 117 H 100 /13/19 17:24 129 H 100 /13/19 17:20 122 H 175/72 /13/19 17:19 128 H 100 12/13/19 17:18 80 L 09/05/19 17:17 133 H 190/86 09/05/19 17:13 105 H 100 09/05/19 17:08 105 H 100 09/05/19 17:03 93 H 100 09/05/19 17:01 93 H 120/56 09/05/19 16:58 96 H 98 09/05/19 16:53 85 100 09/05/19 16:48 88 100 09/05/19 16:47 85 105/59 09/05/19 16:43 86 98 09/05/19 16:38 91 H 99 09/05/19 16:33 91 H 99 09/05/19 16:28 89 100/55 98 09/05/19 16:25 81 126/67 09/05/19 16:23 92 H 99 09/05/19 16:22 95 H 98/53 09/05/19 16:18 94 H 99 09/05/19 16:15 93 H 134/76 09/05/19 16:13 98 H 99 09/05/19 16:12 96 H 144/78 09/05/19 16:10 98 H 155/82 09/05/19 16:08 101 H 99 09/05/19 16:07 95 H 165/95 09/05/19 16:03 111 H 99 09/05/19 15:58 111 H 99 09/05/19 15:53 100 H 98 09/05/19 15:48 97 H 98 09/05/19 15:43 102 H 99 09/05/19 15:38 97 H 99 09/05/19 15:33 100 H 98 09/05/19 12:14 98.7 F 105 H 16 143/87 09/05/19 12:02 105 H 143/87 Intake and Output 09/05/19 09/06/19 09/06/19 23:59 07:59 15:59 Intake Total 91.633 133.333 Output Total 800 Balance 91.633 -666.667 Intake: IV 91.633 133.333 PITOCin/NS 20 UNIT/1000ML 133.333 DRIP 20 units In 1,000 ml @ 125 mls/hr IV DIRECT MAGY Rx#:[id number] PITOCin/NS 30 UNIT/500ML 91.633 30 units In 500 ml @ 2 mls/hr IV TITR MAGY Rx#: [id number] Output: Urine 800 Void 800 Other: Total, Output Amount 300 Estimated Blood Loss 500 - Exam Breasts: Present: normal Cardiovascular: Present: Regular rate Lungs: Present: Clear to auscultation, Normal air movement Abdomen: Present: normal appearance, soft Vulva: both: normal Uterus: Present: normal, firm, fundal height below umbilicus Extremities: Present: normal Deep Tendon Reflex Grade: Normal +2 - Labs Labs: Abnormal lab results 09/05/19 09/05/19 Range/Units 10:20 18:23 WBC 11.2 H (4.5-11.0) K/mm3 Hgb 9.0 L (10.1-14.3) gm/dl Hct 28.5 L (30.3-42.9) % MCV 74 L (79-97) fl MCH 24 L (28-32) pg RDW 18.7 H (13.2-15.2) % Creatinine 0.6 L (0.7-1.2) mg/dL Lactate Dehydrogenase 183 H (91-180) units/L
[2019-09-06] MEDS: FERROUS SULFATE 325 MG TAB PO SCH (09:16)
[2019-09-06 13:20] LABS: Hematocrit 29.6 % (30.3-42.9); Hemoglobin 9.4 gm/dl (10.1-14.3)
[2019-09-06] MEDS: SERTRALINE 50 MG TAB PO SCH (14:54)
--- NOTE | 2019-09-06 19:09 | Event Note ---
Date: 09/06/19 Received call from RN re: elevated b/p. Patient is asymptomatic for pre-e but is experiencing anxiety. Orders given for pre-e labs and vistaril. consulted Dr. Mcfarland - will give PM dose of labetalol now change Labetalol to TID. Will continue to monitor b/p closely.
[2019-09-06 20:07] LABS: Hematocrit 29.3 % (30.3-42.9); Hemoglobin 9.3 gm/dl (10.1-14.3); Mean Corpuscular HGB Conc 32 % (30-34); Mean Corpuscular Volume 76 fl (79-97); Platelet Count 255 K/mm3 (140-440); Red Blood Count 3.86 M/mm3 (3.65-5.03); Red Cell Distribution Width 19.1 % (13.2-15.2)
[2019-09-06 20:33] LABS: Alanine Aminotransferase 8 units/L (7-56); Uric Acid 3.4 mg/dL (3.5-7.6)
[2019-09-06 23:16] LABS: Bilirubin,Urine NEG (Negative); Blood,Urine LG (Negative); Color,Urine Red (Yellow); Mucus,Urine FEW /HPF; Urobilinogen,Urine < 2.0 mg/dL (<2.0)
[2019-09-06 23:18] LABS: RBC,Urine > 182.0 /HPF (0.0-6.0)
[2019-09-07] MEDS: IBUPROFEN 600 MG TAB PO SCH ×4 (05:50→18:00)
[2019-09-07] MEDS: FERROUS SULFATE 325 MG TAB PO SCH (09:49)
[2019-09-07] MEDS: SERTRALINE 50 MG TAB PO SCH (09:49)
[2019-09-07] MEDS: oxyCODONE /ACETAMINOPHEN 5-325MG TAB PO PRN (09:50)
--- NOTE | 2019-09-07 12:59 | Progress Note ---
Assessment and Plan patient doing well, denies PAULINO, visual changes or epigastric pain. b/p more elevated in last 24hrs (120-160's/80's-100's). Consulted with Dr. Mcfarland, will increase labetalol to 300mg TID and continue to monitor. Pre-e lbs checked yesterday NL (UA was sent as clean catch and contaminated with large amount of lochia.) Pt aware she will need additional day of monitoring and may be considered for d/c home tomorrow if she is stable. - Patient Problems (1) HTN (hypertension) Current Visit: Yes Status: Acute Qualifiers: Hypertension type: essential hypertension Qualified Code(s): I10 - Essential (primary) hypertension Plan to address problem: increase labetalol to 300mg TID Monitor b/pclosely monitor for s/s pre-e (2) Anxiety Current Visit: Yes Status: Acute Plan to address problem: will start zoloft Vistaril PO @ HS PRN (3) (spontaneous vaginal delivery) Current Visit: Yes Status: Acute Subjective - Subjective Date of service: 09/07/19 Principal diagnosis: day #2 s/p , CHTN Interval history: EDC Calculations LMP: 09/26/2019 Past History : 4 Term Births: 2 Living Children: 1 Para: 2 Aborta: 1 Elect. Ab: 1 # 1 Delivery date: 07/28/2010 Weeks Gestation: 39 labor: no Delivery type: Anesthesia type: epidural Delivery location: [place] Inf[place] Sex: Female weight: 6-11 Comments: no complications # 2 Delivery date: 2012 Weeks Gestation: term Delivery type: [facility] Infant Sex: Male weight: 7#7 # 3 Delivery date: 2013 Delivery type: EAB Past Medical History: Anxiety Fibroids HTN - on labetalol Past Surgical History: Reviewed history from 07/15/2012 and no changes required: oral Past Medical History Abnormal PAP: positive KATHI Exposure: negative Infertility: negative Uterine Anomaly: negative Uterine Surgery (not C/S): negative Other Gynecologic Problems: negative Medical History Comments: Pt is followed by [facility] annually d/t FH Family Hx: No Family History of Breast Cancer No Family History of Colon Cancer No Family History of Ovarvian Cancer No Family History of DVT/PE on OCP Mother passed of heart attack @ 40 Social Hx: Patient is no ETOH/Drugs/Smoking no pets not working Infection History Hx of STD: none HIV Risk Eval: low risk Hepatitis B Risk Eval: low risk Personal hx. of genital herpes: no Genetic History ADVANCED MATERNAL AGE Congenital Heart Defect: Mom: no Dad: no Suze Disease: Mom: no Dad: no Thalassemia Mom: no Dad: no Neural Tube Defect Mom: no Dad: no Down's Syndrome Mom: no Dad: no Jimy-Sachs Mom: no Dad: no Sickle Cell Disease/Trait Mom: no Dad: no Hemophilia Mom: no Dad: no Muscular Dystrophy Mom: no Dad: no Cystic Fibrosis Mom: no Dad: no [place] Chorea Mom: no Dad: no Mental Retardation Mom: no Dad: no Fragile X Mom: no Dad: no Other Genetic/Chromosomal Disorder Mom: no Dad: no Child w/other defect Mom: no Dad: no Enviromental Exposures Xray Exposure: no Medication, drug, or alcohol use since LMP: no Chemical/Other Exposure: no Exposure to Cat Liter: no Hx of Parvovirus (Fifth Disease): no Occupational Exposure to Children: none Active Medications (reviewed today): LO LOESTRIN 10/03 (NORETHIN DEMETRIUS-ETH ESTRAD-FE TABS) () 1 po qd Current Allergies: No known allergies Patient reports: appetite normal, voiding normally, pain well controlled, ambulating normally, no dizzy ambulation, no nauseated : doing well, bottle feeding Objective - Vital Signs Latest vital signs: Vital Signs Temp Pulse Resp BP BP Pulse Ox 09/07/19 12:13 98 H 154/86 09/07/19 11:10 98 H 154/86 09/07/19 10:51 98.6 F 94 H 18 154/86 97 09/07/19 09:51 95 H 169/103 09/07/19 07:58 98.1 F 95 H 18 169/103 98 09/07/19 04:53 98.2 F 89 20 122/89 99 09/06/19 23:12 18 09/06/19 23:10 98.5 F 90 20 150/95 99 09/06/19 21:38 150/90 09/06/19 21:36 95 H 150/90 09/06/19 19:57 98.2 F 104 H 20 154/90 98 09/06/19 18:54 167/102 09/06/19 16:31 97.9 F 103 H 22 161/102 98 Intake and Output 09/06/19 09/07/19 09/07/19 23:59 07:59 15:59 Intake Total 960 240 Balance 960 240 Intake: Oral 960 Intake, Free Water 240 Other: Total, Intake Amount 240 # Voids Void 1 1 - Exam Breasts: Present: normal Cardiovascular: Present: Regular rate Lungs: Present: Clear to auscultation, Normal air movement Abdomen: Present: normal appearance, soft. Absent: distention, tenderness Vulva: both: normal Uterus: Present: normal, firm, fundal height at umbilicus Extremities: Present: normal Deep Tendon Reflex Grade: Normal +2 - Labs Labs: Abnormal lab results 09/06/19 09/06/19 09/06/19 Range/Units 13:04 19:49 19:49 WBC 13.7 H (4.5-11.0) K/mm3 Hgb 9.4 L 9.3 L (10.1-14.3) gm/dl Hct 29.6 L 29.3 L (30.3-42.9) % MCV 76 L (79-97) fl MCH 24 L (28-32) pg RDW 19.1 H (13.2-15.2) % Creatinine 0.6 L (0.7-1.2) mg/dL Uric Acid 3.4 L (3.5-7.6) mg/dL Lactate Dehydrogenase 209 H (91-180) units/L Urine WBC (Auto) (0.0-6.0) /HPF 09/06/19 Range/Units 20:45 WBC (4.5-11.0) K/mm3 Hgb (10.1-14.3) gm/dl Hct (30.3-42.9) % MCV (79-97) fl MCH (28-32) pg RDW (13.2-15.2) % Creatinine (0.7-1.2) mg/dL Uric Acid (3.5-7.6) mg/dL Lactate Dehydrogenase (91-180) units/L Urine WBC (Auto) 103.0 H (0.0-6.0) /HPF
--- NOTE | 2019-09-07 18:00 | Event Note ---
Date: 09/07/19 b/p continue to rise despite increasing medication. Pt remains asymptomatic for pre-e. b/p after most recent dose of labetalol in severe range. Will transfer to L&D for Magnesium sulfate therapy.
[2019-09-07] MEDS: hydrALAZINE 20 MG/1 ML INJ IV PRN ×2 (18:01→20:47)
[2019-09-07] MEDS ORDERED: hydrALAZINE 20 MG/1 ML INJ ONE (20:47)
[2019-09-07] MEDS ORDERED: MAGNESIUM SULFATE 4 GM/100 ML BAG IV ONE (21:00)
[2019-09-07] MEDS: LACTATED RINGERS 1,000 ML IV SCH (22:01)
[2019-09-07] MEDS: MAGNESIUM SULFATE 40GM/1000ML 40 GM/1,000 ML BAG IV SCH (22:31)
[2019-09-08] MEDS: IBUPROFEN 600 MG TAB PO SCH ×3 (06:26→12:31)
--- NOTE | 2019-09-08 07:32 | Progress Note ---
<JENN VELEZ - Last Filed: 09/08/19 08:06> Assessment and Plan Pt is a 33 y.o. , with some elevated BP's after delivery, diagnosed with Pre E. On Mag with elevated BP's this AM, 170/180's/100's. Hydralazine 10mg IV push to be given. Was also given morning dose of PO Labetalol. Repeat BP 178/107. Labs stable, intact/output WNL . Magnesium infusion to be discontinued at 2231 on 09/08/2019. Will continue to monitor BP's and patient. Continue strict I&O's. Subjective - Subjective Date of service: 09/08/19 (Pt s/p on Mag for Pre E. Pt denies PAULINO, blurred vision, chest pain, upper abdominal pain.) Principal diagnosis: day #2 s/p , CHTN Patient reports: pain well controlled, flatus : doing well Objective - Vital Signs Latest vital signs: Vital Signs Temp Pulse Resp BP BP Pulse Ox 09/08/19 07:22 101 H 99 09/08/19 07:17 102 H 98 09/08/19 07:12 104 H 98 09/08/19 07:10 111 H 177/105 09/08/19 07:09 108 H 187/112 09/08/19 07:07 96 H 99 09/08/19 07:02 95 H 147/83 99 09/08/19 06:57 96 H 98 09/08/19 06:52 98 H 98 09/08/19 06:47 92 H 99 09/08/19 06:42 90 99 09/08/19 06:37 95 H 98 09/08/19 06:32 96 H 98 09/08/19 06:27 96 H 98 09/08/19 06:22 99 H 98 09/08/19 06:17 97.6 F 94 H 99 09/08/19 06:12 104 H 98 09/08/19 06:07 99 H 98 09/08/19 06:02 101 H 119/76 99 09/08/19 05:57 102 H 100 09/08/19 05:52 94 H 98 09/08/19 05:47 86 97 09/08/19 05:42 85 97 09/08/19 05:37 87 97 09/08/19 05:32 92 H 97 09/08/19 05:27 86 97 16 05:22 86 97 09/08/19 05:17 86 98 09/08/19 05:12 88 97 09/08/19 05:07 84 97 09/08/19 05:02 87 108/66 97 09/08/19 04:57 87 98 09/08/19 04:52 86 98 09/08/19 04:47 85 97 09/08/19 04:42 88 97 09/08/19 04:37 94 H 98 09/08/19 04:32 89 98 09/08/19 04:27 87 96 09/08/19 04:22 88 96 09/08/19 04:17 89 96 09/08/19 04:12 84 96 09/08/19 04:07 85 96 09/08/19 04:02 87 117/58 96 09/08/19 04:01 81 94 09/08/19 03:57 87 97 09/08/19 03:52 82 95 09/08/19 03:51 85 94 09/08/19 03:47 81 95 09/08/19 03:44 90 94 09/08/19 03:42 86 98 09/08/19 03:37 86 97 09/08/19 03:32 86 97 09/08/19 03:27 86 98 09/08/19 03:22 98 H 98 09/08/19 03:19 96 H 94 09/08/19 03:17 86 97 09/08/19 03:12 88 98 09/08/19 03:07 97 H 96 09/08/19 03:02 92 H 114/61 96 09/08/19 02:57 93 H 96 09/08/19 02:52 94 H 96 09/08/19 02:47 90 96 09/08/19 02:42 89 96 09/08/19 02:37 89 96 09/08/19 02:32 88 96 09/08/19 02:27 89 96 09/08/19 02:22 89 97 09/08/19 02:17 87 97 09/08/19 02:12 100 H 97 09/08/19 02:07 90 97 09/08/19 02:02 95 H 129/74 98 16 01:58 94 H 93 09/08/19 01:57 87 09/08/19 01:51 83 96 09/08/19 01:49 90 94 09/08/19 01:46 89 98 09/08/19 01:41 88 98 09/08/19 01:36 92 H 97 09/08/19 01:31 101 H 98 09/08/19 01:26 98 H 98 09/08/19 01:21 89 100 09/08/19 01:16 93 H 98 09/08/19 01:11 94 H 98 09/08/19 01:06 90 98 09/08/19 01:02 100 H 134/74 09/08/19 01:01 94 H 98 09/08/19 01:00 18 09/08/19 00:56 90 98 09/08/19 00:51 95 H 98 09/08/19 00:46 96 H 98 09/08/19 00:41 100 H 98 09/08/19 00:36 104 H 98 09/08/19 00:31 100 H 98 09/08/19 00:26 102 H 98 09/08/19 00:21 101 H 99 09/08/19 00:16 96 H 99 09/08/19 00:11 93 H 99 09/08/19 00:06 96 H 98 09/08/19 00:03 95 H 154/81 09/08/19 00:01 99 H 98 09/08/19 00:00 16 09/07/19 23:56 95 H 98 09/07/19 23:51 96 H 98 09/07/19 23:46 98 H 98 09/07/19 23:41 89 98 09/07/19 23:36 92 H 99 09/07/19 23:31 97 H 143/84 98 09/07/19 23:26 89 98 09/07/19 23:21 92 H 98 09/07/19 23:16 94 H 98 09/07/19 23:11 96 H 97 09/07/19 23:06 96 H 97 09/07/19 23:01 101 H 142/71 98 09/07/19 22:56 98 H 98 09/07/19 22:51 90 97 09/07/19 22:46 92 H 98 09/07/19 22:41 97 H 97 09/07/19 22:36 94 H 98 09/07/19 22:31 94 H 97 09/07/19 22:30 92 H 131/74 09/07/19 22:26 99 H 97 09/07/19 22:25 95 H 139/76 09/07/19 22:21 97 H 97 09/07/19 22:20 96 H 140/73 09/07/19 22:16 98 H 98 09/07/19 22:15 99 H 134/70 09/07/19 22:11 98 H 98 09/07/19 22:10 98 H 131/63 09/07/19 22:06 102 H 98 09/07/19 22:05 144/81 09/07/19 22:01 98 H 98 09/07/19 22:00 98 H 148/80 09/07/19 21:57 95 H 156/85 09/07/19 21:56 100 H 99 09/07/19 21:51 97 H 98 09/07/19 21:47 102 H 152/81 09/07/19 21:46 111 H 98 09/07/19 21:42 99 H 152/81 09/07/19 21:41 100 H 98 09/07/19 21:36 101 H 97 09/07/19 21:31 102 H 98 09/07/19 21:27 105 H 154/82 09/07/19 21:26 107 H 97 09/07/19 21:20 107 H 98 09/07/19 21:15 114 H 99 09/07/19 21:12 107 H 154/79 09/07/19 21:08 103 H 98 09/07/19 21:03 103 H 98 09/07/19 20:58 103 H 98 09/07/19 20:57 96 H 157/82 09/07/19 20:53 97 H 99 09/07/19 20:48 87 98 09/07/19 20:43 85 100 09/07/19 20:42 85 158/82 09/07/19 20:38 83 99 09/07/19 20:33 80 98 09/07/19 20:28 77 97 09/07/19 20:09 98.8 F 14 193/103 97 09/07/19 18:01 94 H 189/113 09/07/19 15:27 94 H 189/113 09/07/19 15:23 98.6 F 90 18 209/110 100 09/07/19 12:13 98 H 154/86 09/07/19 11:10 98 H 154/86 09/07/19 10:51 98.6 F 94 H 18 154/86 97 09/07/19 09:51 95 H 169/103 09/07/19 07:58 98.1 F 95 H 18 169/103 98 Intake and Output 09/07/19 09/08/19 09/08/19 22:59 06:59 14:59 Intake Total 10 Output Total 550 2825 Balance -540 -2825 Intake: IV 10 Right Hand 10 Output: Urine 550 2825 Indwelling Catheter 550 2825 Other: Total, Output Amount 550 400 # Voids Void 1 - Exam Breasts: Present: deferred Cardiovascular: Present: Regular rate, Normal S1, Normal S2 Lungs: Present: Clear to auscultation, Normal air movement Abdomen: Present: normal appearance Vulva: both: normal Uterus: Present: normal, fundal height at umbilicus (Minimal rubra) Extremities: Present: normal Deep Tendon Reflex Grade: Normal +2 (Clonus negative) - Labs Labs: Abnormal lab results 09/08/19 09/08/19 Range/Units 00:31 05:49 Magnesium 3.80 H 5.10 H (1.7-2.3) mg/dL <EVELIN GAMINO - Last Filed: 09/08/19 09:02> Assessment and Plan aware of pt status POC reviewed Objective - Vital Signs Latest vital signs: Vital Signs Temp Pulse Resp BP BP Pulse Ox 09/08/19 08:57 94 H 98 09/08/19 08:52 93 H 137/72 98 09/08/19 08:47 92 H 97 09/08/19 08:42 93 H 97 09/08/19 08:37 94 H 135/71 97 09/08/19 08:32 98 H 98 09/08/19 08:27 95 H 97 09/08/19 08:23 96 H 138/79 09/08/19 08:22 98 H 97 09/08/19 08:17 100 H 98 09/08/19 08:12 97.9 F 99 H 98 09/08/19 08:07 107 H 179/97 99 09/08/19 08:04 109 H 169/90 09/08/19 08:02 106 H 98 09/08/19 07:58 111 H 179/104 09/08/19 07:57 106 H 99 09/08/19 07:54 112 H 178/107 09/08/19 07:53 110 H 175/100 09/08/19 07:52 105 H 98 09/08/19 07:47 106 H 172/101 99 09/08/19 07:45 98 H 184/11 09/08/19 07:42 100 H 184/111 99 09/08/19 07:38 108 H 184/111 09/08/19 07:37 112 H 98 09/08/19 07:32 97 H 98 09/08/19 07:27 96 H 98 09/08/19 07:22 101 H 99 09/08/19 07:17 102 H 98 09/08/19 07:12 104 H 98 09/08/19 07:10 111 H 177/105 09/08/19 07:09 108 H 187/112 09/08/19 07:07 96 H 99 09/08/19 07:02 95 H 147/83 99 09/08/19 06:57 96 H 98 09/08/19 06:52 98 H 98 09/08/19 06:47 92 H 99 09/08/19 06:42 90 99 09/08/19 06:37 95 H 98 09/08/19 06:32 96 H 98 09/08/19 06:27 96 H 98 09/08/19 06:22 99 H 98 09/08/19 06:17 97.6 F 94 H 99 09/08/19 06:12 104 H 98 09/08/19 06:07 99 H 98 09/08/19 06:02 101 H 119/76 99 09/08/19 05:57 102 H 100 09/08/19 05:52 94 H 98 09/08/19 05:47 86 97 09/08/19 05:42 85 97 09/08/19 05:37 87 97 09/08/19 05:32 92 H 97 09/08/19 05:27 86 97 09/08/19 05:22 86 97 09/08/19 05:17 86 98 09/08/19 05:12 88 97 09/08/19 05:07 84 97 09/08/19 05:02 87 108/66 97 09/08/19 04:57 87 98 09/08/19 04:52 86 98 09/08/19 04:47 85 97 09/08/19 04:42 88 97 09/08/19 04:37 94 H 98 09/08/19 04:32 89 98 09/08/19 04:27 87 96 09/08/19 04:22 88 96 09/08/19 04:17 89 96 09/08/19 04:12 84 96 09/08/19 04:07 85 96 09/08/19 04:02 87 117/58 96 09/08/19 04:01 81 94 09/08/19 03:57 87 97 09/08/19 03:52 82 95 09/08/19 03:51 85 94 09/08/19 03:47 81 95 09/08/19 03:44 90 94 09/08/19 03:42 86 98 09/08/19 03:37 86 97 09/08/19 03:32 86 97 09/08/19 03:27 86 98 09/08/19 03:22 98 H 98 09/08/19 03:19 96 H 94 09/08/19 03:17 86 97 09/08/19 03:12 88 98 09/08/19 03:07 97 H 96 09/08/19 03:02 92 H 114/61 96 09/08/19 02:57 93 H 96 09/08/19 02:52 94 H 96 09/08/19 02:47 90 96 09/08/19 02:42 89 96 09/08/19 02:37 89 96 09/08/19 02:32 88 96 09/08/19 02:27 89 96 09/08/19 02:22 89 97 09/08/19 02:17 87 97 09/08/19 02:12 100 H 97 09/08/19 02:07 90 97 09/08/19 02:02 95 H 129/74 98 09/08/19 01:58 94 H 93 09/08/19 01:57 87 09/08/19 01:51 83 96 09/08/19 01:49 90 94 09/08/19 01:46 89 98 09/08/19 01:41 88 98 09/08/19 01:36 92 H 97 09/08/19 01:31 101 H 98 09/08/19 01:26 98 H 98 09/08/19 01:21 89 100 09/08/19 01:16 93 H 98 09/08/19 01:11 94 H 98 09/08/19 01:06 90 98 09/08/19 01:02 100 H 134/74 09/08/19 01:01 94 H 98 09/08/19 01:00 18 09/08/19 00:56 90 98 09/08/19 00:51 95 H 98 09/08/19 00:46 96 H 98 09/08/19 00:41 100 H 98 09/08/19 00:36 104 H 98 09/08/19 00:31 100 H 98 09/08/19 00:26 102 H 98 09/08/19 00:21 101 H 99 09/08/19 00:16 96 H 99 09/08/19 00:11 93 H 99 09/08/19 00:06 96 H 98 09/08/19 00:03 95 H 154/81 09/08/19 00:01 99 H 98 09/08/19 00:00 16 09/07/19 23:56 95 H 98 09/07/19 23:51 96 H 98 09/07/19 23:46 98 H 98 09/07/19 23:41 89 98 09/07/19 23:36 92 H 99 09/07/19 23:31 97 H 143/84 98 09/07/19 23:26 89 98 09/07/19 23:21 92 H 98 09/07/19 23:16 94 H 98 09/07/19 23:11 96 H 97 09/07/19 23:06 96 H 97 09/07/19 23:01 101 H 142/71 98 09/07/19 22:56 98 H 98 09/07/19 22:51 90 97 09/07/19 22:46 92 H 98 09/07/19 22:41 97 H 97 09/07/19 22:36 94 H 98 09/07/19 22:31 94 H 97 09/07/19 22:30 92 H 131/74 09/07/19 22:26 99 H 97 09/07/19 22:25 95 H 139/76 09/07/19 22:21 97 H 97 09/07/19 22:20 96 H 140/73 09/07/19 22:16 98 H 98 09/07/19 22:15 99 H 134/70 09/07/19 22:11 98 H 98 09/07/19 22:10 98 H 131/63 09/07/19 22:06 102 H 98 09/07/19 22:05 144/81 09/07/19 22:01 98 H 98 09/07/19 22:00 98 H 148/80 09/07/19 21:57 95 H 156/85 09/07/19 21:56 100 H 99 09/07/19 21:51 97 H 98 09/07/19 21:47 102 H 152/81 09/07/19 21:46 111 H 98 09/07/19 21:42 99 H 152/81 09/07/19 21:41 100 H 98 09/07/19 21:36 101 H 97 09/07/19 21:31 102 H 98 09/07/19 21:27 105 H 154/82 09/07/19 21:26 107 H 97 09/07/19 21:20 107 H 98 09/07/19 21:15 114 H 99 09/07/19 21:12 107 H 154/79 09/07/19 21:08 103 H 98 09/07/19 21:03 103 H 98 09/07/19 20:58 103 H 98 09/07/19 20:57 96 H 157/82 09/07/19 20:53 97 H 99 09/07/19 20:48 87 98 09/07/19 20:43 85 100 09/07/19 20:42 85 158/82 09/07/19 20:38 83 99 09/07/19 20:33 80 98 09/07/19 20:28 77 97 09/07/19 20:09 98.8 F 14 193/103 97 09/07/19 18:01 94 H 189/113 09/07/19 15:27 94 H 189/113 09/07/19 15:23 98.6 F 90 18 209/110 100 09/07/19 12:13 98 H 154/86 09/07/19 11:10 98 H 154/86 09/07/19 10:51 98.6 F 94 H 18 154/86 97 09/07/19 09:51 95 H 169/103 Intake and Output 09/07/19 09/08/19 09/08/19 22:59 06:59 14:59 Intake Total 10 746.25 Output Total 550 2825 800 Balance -540 -2825 -53.75 Intake: IV 10 746.25 Lactated Ringers 1,000 ml 736.25 @ 125 mls/hr IV DIRECT MAGY Rx#:[id number] Right Hand 10 10 Output: Urine 550 2825 800 Indwelling Catheter 550 2825 800 Other: Total, Output Amount 550 400 800 # Voids Void 1 - Labs Labs: Abnormal lab results 09/08/19 09/08/19 Range/Units 00:31 05:49 Magnesium 3.80 H 5.10 H (1.7-2.3) mg/dL
[2019-09-08] MEDS: hydrALAZINE 20 MG/1 ML INJ IV PRN ×2 (07:42→14:51)
[2019-09-08] MEDS: LACTATED RINGERS 1,000 ML IV SCH (07:50)
[2019-09-08] MEDS: SERTRALINE 50 MG TAB PO SCH (09:41)
[2019-09-08] MEDS: FERROUS SULFATE 325 MG TAB PO SCH (09:41)
--- NOTE | 2019-09-08 13:26 | Event Note ---
Date: 09/08/19 Agree with MW noted and exam Will con't magnesium for now and Labetalol 300mg po TID that was started yesterday afternoon. Pt currenlty stable with improved blood pressures.
--- NOTE | 2019-09-08 13:39 | Consultation ---
History of Present Illness - Reason for Consult Consult date: 09/08/19 Reason for consult: Management of Mental Health - Chief Complaint Chief complaint: I started feeling anxious when they told me I was having a - History of Present Psychiatric Illness Mrs. Macias is a 33 y/o black female who has a history of generalized anxiety, according to her. She says she became anxious when she got ready to give and they told her she was having a . Mrs. Macias says since then she was able to calm herself down. She says she was diagnosed with anxiety about three years ago. She says she has never seen a psychiatrist but was started on Ativan by her PCP. She says it was too strong. She says she later was started on Klonopin but has been off of it for about 5 to 6 months due to . She is A/O x 4. She denies SI/HI, and any hallucinations of any kind. PAST PSYCHIATRIC HISTORY: Diagnoses: Anxiety Suicide attempts or Self-harm behavior: Denies Prior psychiatric hospitalizations: Once Substance Abuse history: Denies Previous psychiatric medications tried: Lexapro, Klonopin, Ativan Outpatient treatment: PCP handles currently prescribed psych meds PAST MEDICAL HISTORY: Fibroids, HTN Family Psychiatric History None reported or documented SOCIAL HISTORY Marital Status: Maried Living Arrangements: Spouse Employment Status: Unemployed Access to guns/weapons: Denies Education: High school History of Abuse: Denies Legal History: Denies REVIEW OF SYSTEMS Constitutional: Negative for weight loss ENT: Negative for stridor Respiratory: Negative for cough or hemoptysis All other systems reviewed and are negative MSE Appearance: Wearing appropriate clothing. Good hygiene Behavior: Talkative. Pleasant, calm and cooperative. Mood: "Good, I'm usually able to calm myself down" Affect: Congruent with stated mood Thought Process: Goal directed Speech: Normal rate. Thought Content Harmfulness Denies SI/HI Hallucinations: patient denies Delusions: none elicited Consciousness: alert Cognition/Memory: normal. Insight/Judgment: Limited. DIAGNOSIS: Generalized Anxiety Disorder RECOMMENDATIONS MEDICAL: Per primary team DISPOSITION: Per primary team, no indication for acute inpatient psychiatric hospitalization at this time LEGAL STATUS: Voluntary Will Sign off. Can D/C once medically stable Patient to follow up with PCP or outpatient psychiatry Thank you for this consult Medications and Allergies Allergies Allergy/AdvReac Type Severity Reaction Status Date / Time No Known Allergies Allergy Unverified 09/05/19 11:07 Home Medications Medication Instructions Recorded Confirmed Last Taken Type Docusate Sodium [Colace] 100 mg PO BID PRN #30 capsule 09/06/19 Unknown Rx Ferrous Sulfate [Feosol 325 MG tab] 325 mg PO DAILY #90 tablet 09/06/19 Unknown Rx Lidocain2.5%/Prilocai2.5% [Emla] 5 gm TP ONCE #1 tube 09/06/19 Unknown Rx Active Meds: Active Medications Acetaminophen (Tylenol) 650 mg PO Q4H PRN PRN Reason: Pain MILD(1-3)/Fever >100.5/PAULINO Bisacodyl (Dulcolax) 10 mg GA BID PRN PRN Reason: Constipation Diphenhydramine HCl (Benadryl) 25 mg PO Q6H PRN PRN Reason: Itching Ferrous Sulfate (Feosol) 325 mg PO QDAY [facility] Last Admin: 09/08/19 09:41 Dose: 325 mg Documented by: Hydralazine HCl (Apresoline) 10 mg IV Q30MIN PRN PRN Reason: Hypertension Last Admin: 09/08/19 07:42 Dose: 10 mg Documented by: Hydroxyzine Pamoate (Vistaril) 100 mg PO HS PRN PRN Reason: Anxiety Lactated Ringer's (Lactated Ringers) 1,000 mls @ 125 mls/hr IV DIRECT [facility] Last Admin: 09/08/19 07:50 Dose: 75 mls/hr Documented by: Magnesium Sulfate (Magnesium Sulfate 40gm/1000ml) 40 gm in 1,000 mls @ 50 mls/hr IV DIRECT [facility] Last Admin: 09/07/19 22:31 Dose: 2 gm/hr, 50 mls/hr Documented by: Ibuprofen (Ibuprofen) 600 mg PO Q6HR [facility] Last Admin: 09/08/19 12:31 Dose: Not Given Documented by: Labetalol HCl (Labetalol) 300 mg PO TID [facility] Last Admin: 09/08/19 07:45 Dose: 300 mg Documented by: Magnesium Hydroxide (Milk Of Magnesia) 30 ml PO HS PRN PRN Reason: Constipation Misoprostol (Cytotec) 1,000 mcg GA ONCE PRN PRN Reason: bleeding Multi-Ingredient Ointment (Lansinoh) 1 applic TP PRN PRN PRN Reason: Sore Nipples Ondansetron HCl (Zofran) 4 mg IV Q8H PRN PRN Reason: Nausea And Vomiting Oxycodone/Acetaminophen (Percocet 5/325) 1 tab PO Q6H PRN PRN Reason: Pain, Moderate (4-6) Last Admin: 09/07/19 09:50 Dose: 1 tab Documented by: Promethazine HCl (Phenergan) 25 mg GA Q6H PRN PRN Reason: Nausea And Vomiting Promethazine HCl (Phenergan) 25 mg PO Q6H PRN PRN Reason: Nausea And Vomiting Sertraline HCl (Zoloft) 50 mg PO QDAY [facility] Last Admin: 09/08/19 09:41 Dose: 50 mg Documented by: Glynn Sales/Glycerin (Tucks Pad) 1 each TP PRN PRN PRN Reason: Hemorrhoid/cleansing/soothing Mental Status Exam - Vital signs Last Vital Signs Temp 97.9 F 09/08/19 08:12 Pulse 95 H 09/08/19 13:34 Resp 18 09/08/19 01:00 BP 148/88 09/08/19 12:41 Pulse Ox 98 09/08/19 13:34 Results Result Diagrams: 09/06/19 19:49 09/06/19 19:49 Abnormal lab results 09/08/19 09/08/19 09/08/19 Range/Units 00:31 05:49 11:54 Magnesium 3.80 H 5.10 H 5.50 H (1.7-2.3) mg/dL All other labs normal.
[2019-09-08] MEDS: MAGNESIUM SULFATE 40GM/1000ML 40 GM/1,000 ML BAG IV SCH (15:55)
--- NOTE | 2019-09-08 18:01 | Event Note ---
Date: 09/08/19 (Pre E on Magnesium Infusion) Pt is s/p with elevated BP's now on magnesium infusion. Mag infusion due to be turned off at 2230 on 09/08/2019. Pt denies PAULINO, chest pain, blurred vision, spots before her eyes, and upper abdominal pain. Pt with questions regarding transfer to mother baby unit. Discussed that mag will be turned off and paul thompson aken out before transfer. Pt agrees to this plan.
[2019-09-09] MEDS: IBUPROFEN 600 MG TAB PO SCH ×2 (01:25→09:28)
[2019-09-09] MEDS: oxyCODONE /ACETAMINOPHEN 5-325MG TAB PO PRN (05:45)
[2019-09-09] MEDS ORDERED: NIFEdipine XL 30 MG TAB PO ONE (07:56)
--- NOTE | 2019-09-09 08:03 | Progress Note ---
Assessment and Plan patient reports she is feeling well and ready to go home. She denies PAULINO, visual problems or epigastric pain. Advised b/p this morning was elevated 168/107 @ 0400 and is therefore not being controlled by current medication. Dr. kauffman consulted, will add procardia and hospitalist consult. RN aware. - Patient Problems (1) HTN (hypertension) Current Visit: Yes Status: Acute Qualifiers: Hypertension type: essential hypertension Qualified Code(s): I10 - Essential (primary) hypertension Plan to address problem: increase labetalol to 300mg TID Add Procardia XL 30mg QD Monitor b/p closely Consult placed to Hospitalist, called and Spoke with Dr. Loepz. (2) Anxiety Current Visit: Yes Status: Acute Plan to address problem: will start zoloft Vistaril PO @ HS PRN (3) (spontaneous vaginal delivery) Current Visit: Yes Status: Acute Subjective - Subjective Date of service: 09/09/19 Principal diagnosis: day #4 s/p , CHTN Interval history: EDC Calculations LMP: 09/26/2019 Past History : 4 Term Births: 2 Living Children: 1 Para: 2 Aborta: 1 Elect. Ab: 1 # 1 Delivery date: 07/28/2010 Weeks Gestation: 39 labor: no Delivery type: Anesthesia type: epidural Delivery location: [place] Sex: Female weight: 6-11 Comments: no complications # 2 Delivery date: 2012 Weeks Gestation: term Delivery type: Delivery location: [facility] Sex: Male weight: 7#7 # 3 Delivery date: 2013 Delivery type: EAB Past Medical History: Anxiety Fibroids HTN - on labetalol Past Surgical History: Reviewed history from 07/15/2012 and no changes required: oral Past Medical History Abnormal PAP: positive KATHI Exposure: negative Infertility: negative Uterine Anomaly: negative Uterine Surgery (not C/S): negative Other Gynecologic Problems: negative Medical History Comments: Pt is followed by [facility] annually d/t FH Family Hx: No Family History of Breast Cancer No Family History of Colon Cancer No Family History of Ovarvian Cancer No Family History of DVT/PE on OCP Mother passed of heart attack @ 40 Social Hx: Patient is no ETOH/Drugs/Smoking no pets not working Infection History Hx of STD: none HIV Risk Eval: low risk Hepatitis B Risk Eval: low risk Personal hx. of genital herpes: no Genetic History ADVANCED MATERNAL AGE Congenital Heart Defect: Mom: no Dad: no Suze Disease: Mom: no Dad: no Thalassemia Mom: no Dad: no Neural Tube Defect Mom: no Dad: no Down's Syndrome Mom: no Dad: no Jimy-Sachs Mom: no Dad: no Sickle Cell Disease/Trait Mom: no Dad: no Hemophilia Mom: no Dad: no Muscular Dystrophy Mom: no Dad: no Cystic Fibrosis Mom: no Dad: no [place] Chorea Mom: no Dad: no Mental Retardation Mom: no Dad: no Fragile X Mom: no Dad: no Other Genetic/Chromosomal Disorder Mom: no Dad: no Child w/other defect Mom: no Dad: no Enviromental Exposures Xray Exposure: no Medication, drug, or alcohol use since LMP: no Chemical/Other Exposure: no Exposure to Cat Liter: no Hx of Parvovirus (Fifth Disease): no Occupational Exposure to Children: none Active Medications (reviewed today): LO LOESTRIN 10/03 (NORETHIN DEMETRIUS-ETH ESTRAD-FE TABS) () 1 po qd Current Allergies: No known allergies Patient reports: appetite normal, voiding normally, pain well controlled, ambulating normally, no dizzy ambulation, no nauseated : doing well Objective - Vital Signs Latest vital signs: Vital Signs Temp Pulse Resp BP BP Pulse Ox 09/09/19 04:00 98.7 F 79 16 168/107 09/09/19 01:10 98.6 F 91 H 16 145/89 99 09/09/19 00:41 98 H 98 09/09/19 00:36 88 99 09/09/19 00:31 89 99 09/09/19 00:26 86 98 09/09/19 00:21 88 97 09/09/19 00:16 85 98 09/09/19 00:11 86 98 09/09/19 00:08 93 H 142/84 09/09/19 00:06 88 98 09/09/19 00:01 88 98 09/08/19 23:56 92 H 98 09/08/19 23:51 89 99 09/08/19 23:46 91 H 99 09/08/19 23:41 87 97 09/08/19 23:36 82 98 09/08/19 23:31 80 96 09/08/19 23:26 81 96 09/08/19 23:21 84 97 09/08/19 23:16 86 97 09/08/19 23:11 85 98 09/08/19 23:08 92 H 141/84 09/08/19 23:06 87 98 09/08/19 23:01 85 97 09/08/19 22:56 86 98 09/08/19 22:51 86 97 09/08/19 22:46 85 97 09/08/19 22:41 84 97 09/08/19 22:36 88 97 09/08/19 22:31 85 98 09/08/19 22:26 86 97 09/08/19 22:21 85 97 09/08/19 22:16 86 97 09/08/19 22:11 85 98 09/08/19 22:08 89 137/84 09/08/19 22:06 87 98 09/08/19 22:04 91 09/08/19 22:01 89 99 09/08/19 21:56 87 99 09/08/19 21:51 87 99 09/08/19 21:46 85 99 09/08/19 21:41 87 99 09/08/19 21:36 87 98 09/08/19 21:31 86 99 09/08/19 21:26 86 99 09/08/19 21:21 88 97 09/08/19 21:16 86 98 09/08/19 21:11 85 97 09/08/19 21:08 93 H 143/87 09/08/19 21:06 90 97 09/08/19 21:01 90 97 09/08/19 20:56 89 97 09/08/19 20:51 87 98 09/08/19 20:46 90 96 09/08/19 20:41 91 H 97 09/08/19 20:36 91 H 98 09/08/19 20:31 96 H 18 98 09/08/19 20:29 96 H 152/87 09/08/19 20:26 96 H 98 09/08/19 20:21 94 H 98 09/08/19 20:16 96 H 98 09/08/19 20:11 98 H 98 09/08/19 20:08 100 H 152/87 09/08/19 20:06 97 H 98 09/08/19 20:01 96 H 98 12/16/19 19:56 96 H 98 12/16/19 19:51 93 H 98 12/16/19 19:46 93 H 98 12/16/19 19:43 98.4 F 97 H 18 157/95 98 12/16/19 19:42 101 H 157/95 12/16/19 19:41 102 H 98 12/16/19 19:36 97 H 98 12/16/19 19:31 96 H 98 12/16/19 19:26 98 H 98 12/16/19 19:21 96 H 97 12/16/19 19:16 96 H 97 12/16/19 19:11 95 H 98 12/16/19 19:08 102 H 148/84 12/16/19 19:06 97 H 98 12/16/19 19:01 96 H 97 12/16/19 18:56 93 H 98 12/16/19 18:51 95 H 98 12/16/19 18:46 98 H 98 12/16/19 18:41 96 H 98 12/16/19 18:36 99 H 98 12/16/19 18:31 95 H 98 12/16/19 18:26 94 H 98 12/16/19 18:21 95 H 97 12/16/19 18:16 95 H 97 12/16/19 18:11 100 H 98 12/16/19 18:08 95 H 139/91 12/16/19 18:06 92 H 98 12/16/19 18:01 95 H 97 12/16/19 17:56 97 H 98 12/16/19 17:51 93 H 98 12/16/19 17:46 91 H 98 12/16/19 17:41 91 H 98 12/16/19 17:36 93 H 97 12/16/19 17:31 91 H 97 12/16/19 17:26 92 H 97 12/16/19 17:21 92 H 97 12/16/19 17:16 93 H 98 12/16/19 17:11 93 H 98 12/16/19 17:06 91 H 98 12/16/19 17:01 92 H 98 12/16/19 16:56 90 117/71 98 12/16/19 16:51 90 98 12/16/19 16:46 91 H 98 12/16/19 16:41 89 126/78 98 12/16/19 16:36 91 H 97 1216/19 16:31 89 97 1216/19 16:27 88 134/82 1216/19 16:26 89 97 1216/19 16:21 91 H 97 1216/19 16:16 91 H 98 16/19 16:11 93 H 122/69 98 1216/19 16:06 96 H 98 16/19 16:01 90 97 16/19 15:56 93 H 132/70 97 16/19 15:51 91 H 98 16/19 15:45 97 H 97 16/19 15:41 102 H 131/72 16/19 15:40 101 H 98 16/19 15:35 104 H 98 16/19 15:30 107 H 97 16 15:26 106 H 141/77 16/ 15:25 104 H 98 16 15:20 99 H 98 16 15:15 105 H 98 16 15:11 106 H 156/89 1619 15:10 101 H 98 16/19 15:06 106 H 162/94 16/19 15:05 109 H 162/94 97 16 15:00 104 H 98 09/08/19 14:55 103 H 98 16 14:51 104 H 165/100 16 14:50 100 H 97 16 14:45 106 H 165/100 98 16 14:41 101 H 169/95 16 14:40 102 H 98 1619 14:35 102 H 98 16 14:30 103 H 97 16/19 14:25 93 H 98 16/19 14:20 94 H 98 16 14:15 96 H 97 16 14:10 103 H 97 16 14:05 99 H 99 16 14:00 99 H 98 16 13:54 101 H 98 16/19 13:49 96 H 98 1619 13:44 95 H 98 1619 13:41 101 H 164/89 09/08/19 13:39 103 H 98 09/08/19 13:34 95 H 98 09/08/19 13:29 89 98 09/08/19 13:24 91 H 98 09/08/19 13:19 90 97 09/08/19 13:14 94 H 98 09/08/19 13:09 95 H 98 09/08/19 13:04 99 H 98 09/08/19 12:59 97 H 98 09/08/19 12:54 96 H 98 09/08/19 12:49 104 H 98 09/08/19 12:44 100 H 98 09/08/19 12:41 96 H 148/88 09/08/19 12:39 99 H 98 09/08/19 12:34 99 H 97 09/08/19 12:29 95 H 98 09/08/19 12:24 96 H 98 09/08/19 12:19 92 H 97 09/08/19 12:14 92 H 97 09/08/19 12:09 91 H 97 09/08/19 12:04 97 H 96 09/08/19 11:59 92 H 96 09/08/19 11:54 93 H 98 09/08/19 11:49 92 H 98 09/08/19 11:44 99 H 98 09/08/19 11:41 98 H 135/80 09/08/19 11:39 99 H 99 09/08/19 11:34 97 H 98 09/08/19 11:29 93 H 97 09/08/19 11:24 92 H 98 09/08/19 11:19 97 H 98 09/08/19 11:14 97 H 98 09/08/19 11:09 95 H 99 09/08/19 11:04 96 H 98 09/08/19 10:59 96 H 98 09/08/19 10:54 92 H 99 09/08/19 10:52 109 H 81 L 09/08/19 10:47 91 H 97 09/08/19 10:42 97 H 98 09/08/19 10:41 95 H 128/71 09/08/19 10:37 90 96 09/08/19 10:32 89 97 09/08/19 10:27 96 H 98 09/08/19 10:22 84 97 09/08/19 10:17 87 98 09/08/19 10:13 86 94 12/16/19 10:12 86 95 09/08/19 10:07 90 100 09/08/19 10:02 95 H 99 09/08/19 09:57 88 98 09/08/19 09:52 30 L 98 09/08/19 09:47 88 99 09/08/19 09:42 99 H 98 09/08/19 09:37 92 H 132/70 98 09/08/19 09:32 90 97 09/08/19 09:27 96 H 98 09/08/19 09:22 93 H 128/63 97 09/08/19 09:17 91 H 98 09/08/19 09:12 90 98 09/08/19 09:07 93 H 145/79 96 09/08/19 09:02 92 H 97 09/08/19 08:57 94 H 98 09/08/19 08:52 93 H 137/72 98 09/08/19 08:47 92 H 97 09/08/19 08:42 93 H 97 09/08/19 08:37 94 H 135/71 97 09/08/19 08:32 98 H 98 09/08/19 08:27 95 H 97 09/08/19 08:23 96 H 138/79 09/08/19 08:22 98 H 97 09/08/19 08:17 100 H 98 09/08/19 08:12 97.9 F 99 H 98 09/08/19 08:07 107 H 179/97 99 09/08/19 08:04 109 H 169/90 09/08/19 08:02 106 H 98 Intake and Output 09/08/19 09/08/19 09/09/19 15:59 23:59 07:59 Intake Total 870 300 Output Total 4400 3550 Balance -3530 -3550 300 Intake: IV 870 MAGNESIUM SULFATE 40GM/ 870 1000ML 40 gm In 1,000 ml @ 2 GM/HR 50 mls/hr IV DIRECT MAGY Rx#:[id number] Intake, Free Water 300 Output: Urine 4400 3550 Indwelling Catheter 4400 3550 Other: Total, Output Amount 1300 300 - Exam Breasts: Present: normal Cardiovascular: Present: Regular rate Lungs: Present: Clear to auscultation, Normal air movement Abdomen: Present: normal appearance, soft, normal bowel sounds Vulva: both: normal Uterus: Present: normal, firm, fundal height below umbilicus Extremities: Present: normal - Labs Labs: Abnormal lab results 09/08/19 09/08/19 Range/Units 11:54 22:00 Magnesium 5.50 H 6.10 H (1.7-2.3) mg/dL
[2019-09-09] MEDS: FERROUS SULFATE 325 MG TAB PO SCH (09:30)
[2019-09-09] MEDS ORDERED: NIFEdipine XL 30 MG TAB PO SCH (10:00)
[2019-09-09] MEDS: SERTRALINE 50 MG TAB PO SCH (11:15)
--- NOTE | 2019-09-09 16:58 | Consultation ---
History of Present Illness - Reason for Consult Consult date: 09/09/19 Hypertension Requesting physician: POWER JOSHUA - History of Present Illness Patient is a 33-year-old female who is 4 days and we are consulted to assist with management of blood pressure. Per patient she does have a history of hypertension, morbid obesity, anxiety disorder she was previously on propranolol in addition to Klonopin, but this was changed when she got to Zoloft and labetalol. Patient following delivery has remained with systolic and diastolic hypertension culminating in the consult today. Prior to my evaluation the patient had received Procardia which helped with the blood pressure. I did discuss with the patient extensively she reports being anxious about continued stay in the hospital nevertheless her baby is doing well and she is probably going to be discharged today. Denies any chest pain nausea vomiting, diarrhea at this time. Past History Past Medical History: hypertension, hyperlipidemia, other (Anxiety) Past Surgical History: No surgical history Social history: no significant social history Family history: no significant family history Medications and Allergies Allergies Allergy/AdvReac Type Severity Reaction Status Date / Time No Known Allergies Allergy Unverified 09/05/19 11:07 Home Medications Medication Instructions Recorded Confirmed Last Taken Type Docusate Sodium [Colace] 100 mg PO BID PRN #30 capsule 09/06/19 Unknown Rx Ferrous Sulfate [Feosol 325 MG tab] 325 mg PO DAILY #90 tablet 09/06/19 Unknown Rx Lidocain2.5%/Prilocai2.5% [Emla] 5 gm TP ONCE #1 tube 09/06/19 Unknown Rx NIFEdipine XL [Procardia Xl] 30 mg PO QDAY #30 tablet 09/09/19 Unknown Rx labetaloL [Labetalol 100mg TAB] 300 mg PO TID #90 tablet 09/09/19 Unknown Rx Active Meds: Active Medications Acetaminophen (Tylenol) 650 mg PO Q4H PRN PRN Reason: Pain MILD(1-3)/Fever >100.5/PAULINO Last Admin: 09/08/19 20:31 Dose: 650 mg Documented by: Bisacodyl (Dulcolax) 10 mg CO BID PRN PRN Reason: Constipation Diphenhydramine HCl (Benadryl) 25 mg PO Q6H PRN PRN Reason: Itching Ferrous Sulfate (Feosol) 325 mg PO QDAY [facility] Last Admin: 09/09/19 09:30 Dose: 325 mg Documented by: Hydralazine HCl (Apresoline) 10 mg IV Q30MIN PRN PRN Reason: Hypertension Last Admin: 09/08/19 14:51 Dose: 10 mg Documented by: Hydroxyzine Pamoate (Vistaril) 100 mg PO HS PRN PRN Reason: Anxiety Last Admin: 09/09/19 00:42 Dose: 100 mg Documented by: Lactated Ringer's (Lactated Ringers) 1,000 mls @ 125 mls/hr IV DIRECT [facility] [place] Last Admin: 09/08/19 07:50 Dose: 75 mls/hr Documented by: Ibuprofen (Ibuprofen) 600 mg PO Q6HR [facility] [place] Last Admin: 09/09/19 09:28 Dose: 600 mg Documented by: Labetalol HCl (Labetalol) 300 mg PO TID [facility] [place] Last Admin: 09/09/19 09:22 Dose: 300 mg Documented by: Magnesium Hydroxide (Milk Of Magnesia) 30 ml PO HS PRN PRN Reason: Constipation Misoprostol (Cytotec) 1,000 mcg CO ONCE PRN PRN Reason: bleeding Multi-Ingredient Ointment (Lansinoh) 1 applic TP PRN PRN PRN Reason: Sore Nipples Nifedipine (Procardia Xl) 30 mg PO QDAY [facility] [place] Last Admin: 09/09/19 08:00 Dose: 30 mg Documented by: Ondansetron HCl (Zofran) 4 mg IV Q8H PRN PRN Reason: Nausea And Vomiting Oxycodone/Acetaminophen (Percocet 5/325) 1 tab PO Q6H PRN PRN Reason: Pain, Moderate (4-6) Last Admin: 09/09/19 05:45 Dose: 1 tab Documented by: Promethazine HCl (Phenergan) 25 mg CO Q6H PRN PRN Reason: Nausea And Vomiting Promethazine HCl (Phenergan) 25 mg PO Q6H PRN PRN Reason: Nausea And Vomiting Sertraline HCl (Zoloft) 50 mg PO QDAY [facility] [place] Last Admin: 09/08/19 09:41 Dose: 50 mg Documented by: Glynn Gantel/Glycerin (Tucks Pad) 1 each TP PRN PRN PRN Reason: Hemorrhoid/cleansing/soothing Review of Systems All systems: negative Constitutional: fatigue, no weight gain, no fever, no chills, no sweats, no weakness Cardiovascular: no orthopnea, no palpitations, no edema Respiratory: no cough, no hemoptysis, no dyspnea on exertion Gastrointestinal: no change in bowel habits, no loss of appetite, no heartburn Exam - Physical Exam Narrative exam: VITAL SIGNS: Reviewed. GENERAL: The patient appears normally developed, Vital signs as documented. HEAD: No signs of head trauma. EYES: Pupils are equal. Extraocular motions intact. EARS: Hearing grossly intact. MOUTH: Oropharynx is normal. NECK: No adenopathy, no JVD. CHEST: Chest with clear breath sounds bilaterally. No wheezes, rales, or rhonchi. CARDIAC: Regular rate and rhythm. S1 and S2, without murmurs, gallops, or rubs. VASCULAR: No Edema. Peripheral pulses normal and equal in all extremities. ABDOMEN: Soft, non tender and non distended. No rebound or guarding, and no masses palpated. Bowel Sounds normal. MUSCULOSKELETAL: Good range of motion of all major joints. Extremities without clubbing, cyanosis or edema. NEUROLOGIC EXAM: Alert and oriented x 3 No focal sensory or strength deficits. Speech normal. Follows commands. PSYCHIATRIC: Mood normal. SKIN: detial exam as documented in skin assessment - Constitutional Vitals: Temp Pulse Resp BP Pulse Ox 98.6 F 94 H 18 145/90 99 09/09/19 12:41 09/09/19 12:41 09/09/19 12:41 09/09/19 12:41 09/09/19 01:10 Results - Labs CBC & Chem 7: 09/06/19 19:49 09/06/19 19:49 Labs: Abnormal lab results 09/08/19 Range/Units 22:00 Magnesium 6.10 H (1.7-2.3) mg/dL Assessment and Plan Patient is a 33-year-old female who is 4 days and we are consulted to assist with management of blood pressure. Per patient she does have a history of hypertension, morbid obesity, anxiety disorder she was previously on prop ranolol in addition to Klonopin, but this was changed when she got to Zoloft and labetalol. Patient following delivery has remained with systolic and diastolic hypertension culminating in the consult today. Prior to my evaluation the patient had received Procardia which helped with the blood pressure. I did discuss with the patient extensively she reports being anxious about continued stay in the hospital nevertheless her baby is doing well and she is probably going to be discharged today. Denies any chest pain nausea vomiting, diarrhea at this time. HTN bp better controlled on procardia and Labatelol combination and can be discharged on this regimen. Can be discharged from medicine stand point patient encouraged to keep a BP diary and Discuss with her application administrator at her follow up appointment Anxiety disorder- FOLLOW WITH PCP Morbid obesity Noncompliant Post
--- NOTE | 2019-09-09 17:10 | Discharge Summary ---
Providers - Providers Date of Admission: 09/05/19 09:33 Date of discharge: 09/09/19 (desires d/c home, cleared by hospitalist) Attending physician: POWER JOSHUA 09/06/19 02:13 Consult to [employer] [CONS] Routine Reason For Exam: assistance with , SNS 09/06/19 08:21 Consult to Mental Health [CONS] Routine Reason For Exam: anxiety disorder Place consult to:: Mental health Notified:: zeus Phone number called:: [phone] Time called:: 16:00 09/09/19 07:30 Consult to Physician [CONS] Urgent Comment: Consulting Provider: TRAE RUGGIERO Physician Instructions: Reason For Exam: uncontrolled CHTN post vaginal delivey Primary care physician: POWER JOSHUA Hospitalization Reason for admission: induction of labor Delivery: Episiotomy: none Laceration: none Other procedures: none complications: other (htn) Discharge diagnosis: IUP at term delivered baby: male Hospital course: and course complicated by HTN Condition at discharge: Good Disposition: DC-01 TO HOME OR SELFCARE - Discharge Diagnoses (1) HTN (hypertension) Status: Acute Qualifiers: Hypertension type: essential hypertension Qualified Code(s): I10 - Essential (primary) hypertension (2) Anxiety Status: Acute (3) (spontaneous vaginal delivery) Status: Acute Plan - Discharge Medications Prescriptions: Docusate Sodium [Colace] 100 mg PO BID PRN #30 capsule PRN Reason: Constipation Lidocain2.5%/Prilocai2.5% [Emla] 5 gm TP ONCE #1 tube Ferrous Sulfate [Feosol 325 MG tab] 325 mg PO DAILY #90 tablet labetaloL [Labetalol 100mg TAB] 300 mg PO TID #90 tablet NIFEdipine XL [Procardia Xl] 30 mg PO QDAY #30 tablet - Provider Discharge Summary Activity: routine, no sex for 6 weeks, no heavy lifting 4 weeks, no strenuous exercise Diet: routine Instructions: routine Additional instructions: [] Smoking cessation referral if applicable(refer to patient education folder for contact #) [] Refer to [facility] Booklet Call your doctor immediately for: * Fever > 100.5 * Heavy vaginal bleeding ( >1 pad per hour) * Severe persistent headache * Shortness of breath * Reddened, hot, painful area to leg or breast * Drainage or odor from incision. * Keep incision clean and dry at all times and follow doctor's instructions regarding bathing/showering - Follow up plan Follow up: [facility] [Provider Group] - 7 Days POWER JOSHUA MD [Primary Care Provider] - 09/15/19 2:30 pm (Congratulations! please call [phone] to schedule your son's circumcision in 1 week. You have an appointment scheduled 09/15/19 @ 2:30PM with Dr. kauffman in the [place] office. Bring PHILIP cream to your son's appointment and wait for further teaching. Callfor any questions or concerns.)
[2019-09-09 18:16] VITALS: BP 158/92
== END 2019-09-09 18:57 | disposition home or self-care (01) | DRG 806 ==
LOC: LD 09:33 → OB 09-06 02:10 → LD 09-07 20:53 → OB 09-09 01:04
PROVIDERS: ADMIT Obstetrics & Gynecology; ATTEND Obstetrics & Gynecology
PROC: 10907ZC Drainage of Amniotic Fluid, Therapeutic from Products of Conception, Via Natural or Artificial Opening (ICD-10-PCS; 2019-09-05)
PROC: 3E033VJ Introduction of Other Hormone into Peripheral Vein, Percutaneous Approach (ICD-10-PCS; 2019-09-05)
PROC: 10H07YZ Insertion of Other Device into Products of Conception, Via Natural or Artificial Opening (ICD-10-PCS; 2019-09-05)
PROC: 10E0XZZ Delivery of Products of Conception, External Approach (ICD-10-PCS; principal; 2019-09-06)
PROC: 3E0R3BZ Introduction of Anesthetic Agent into Spinal Canal, Percutaneous Approach (ICD-10-PCS; 2019-09-06)
PROC: 00HU33Z Insertion of Infusion Device into Spinal Canal, Percutaneous Approach (ICD-10-PCS; 2019-09-06)
DX: O36.5930 Maternal care for other known or suspected poor fetal growth, third trimester, not applicable or unspecified (principal); O10.02 Pre-existing essential hypertension complicating childbirth; Z37.0 Single live birth; O99.214 Obesity complicating childbirth; F41.9 Anxiety disorder, unspecified; E66.9 Obesity, unspecified; O99.344 Other mental disorders complicating childbirth; Z3A.37 37 weeks gestation of pregnancy; Z82.49 Family history of ischemic heart disease and other diseases of the circulatory system; Z91.19 Patient's noncompliance with other medical treatment and regimen
CPT/HCPCS: 36415; 80307; 81001; 82565; 83615; 83735; 84450; 84460; 84550; 85014; 85018; 85027; 86592; 86850; 86900; 86901; 88307; G0378; J0360; J0690; J2590; J2765; J3475; J3490; J7030; J7120; Q0177

== ENCOUNTER 2019-09-09 22:41 | Emergency (ER) | payer OTHER ==
[2019-09-09] MEDS ORDERED: MAGNESIUM SULFATE 40GM/1000ML 40 GM/1,000 ML BAG IV ONE (23:17)
[2019-09-09] MEDS ORDERED: METOCLOPRAMIDE 10 MG/2 ML INJ IV ONE (23:17)
--- NOTE | 2019-09-09 23:33 | Emergency Department Report ---
ED General Adult HPI - General Chief complaint: Chest Pain Stated complaint: CHEST/ARM PAIN Time Seen by Provider: 09/09/19 23:04 Source: patient, RN notes reviewed, old records reviewed Mode of arrival: Ambulatory Limitations: No Limitations - History of Present Illness Initial comments: During the history and physical examination, I am account technician and escorted by ER tire technician Tonya Odonnell PARK GUIDE: Dr. Mcfarland, Dr. Moura Primary care DrTony: Angel ram Cardiology: [facility] Past medical history: Hypertension, high cholesterol, anxiety, reports myocardial infarction in maternal lineage, while her mother was in her 40s The patient is a 33-year-old female. The patient was just discharged to labor and delivery service. She had a normal spontaneous vaginal delivery. While in the hospital, she was treated for presumed preeclampsia with magnesium, and had multiple evaluations for hypertension and elevated blood pressure. It is documented that the patient did not endorse chest pain, headache or neurologic symptoms. She was discharged a few hours ago. The patient presents to the ER with a complaint of nontraumatic left sided chest wall pain, present for 1 hour, intermittent, tingling in her left upper extremity fingertips, nonsudden, non-thunderclap headache, global, not sudden or thunderclap in nature, not the worst headache of her life, no blurry vision. -: Gradual Location: head, chest Radiation: non-radiation Quality: aching Improves with: none Worsens with: none - Related Data Previous Rx's Medication Instructions Recorded Last Taken Type Docusate Sodium [Colace] 100 mg PO BID PRN #30 capsule 09/06/19 Unknown Rx Ferrous Sulfate [Feosol 325 MG tab] 325 mg PO DAILY #90 tablet 09/06/19 Unknown Rx Lidocain2.5%/Prilocai2.5% [Emla] 5 gm TP ONCE #1 tube 09/06/19 Unknown Rx NIFEdipine XL [Procardia Xl] 30 mg PO QDAY #30 tablet 09/10/19 Unknown Rx labetaloL [Labetalol 100mg TAB] 300 mg PO TID #90 tablet 09/10/19 Unknown Rx Allergies Allergy/AdvReac Type Severity Reaction Status Date / Time No Known Allergies Allergy Unverified 09/05/19 11:07 ED Review of Systems ROS: Stated complaint: CHEST/ARM PAIN Other details as noted in HPI Constitutional: malaise. denies: fever Eyes: denies: eye discharge ENT: denies: congestion Respiratory: denies: wheezing Cardiovascular: chest pain. denies: syncope Gastrointestinal: denies: abdominal pain, nausea, vomiting Genitourinary: denies: dysuria Musculoskeletal: myalgia Neurological: headache. denies: weakness Psychiatric: anxiety ED Past Medical Hx - Past Medical History Previous Medical History?: Yes Hx Hypertension: Yes Hx Congestive Heart Failure: No Hx Diabetes: No Hx Deep Vein Thrombosis: No Hx Renal Disease: No Hx Sickle Cell Disease: No Hx Seizures: No Hx Asthma: No Hx COPD: No Hx HIV: No - Surgical History Past Surgical History?: No - Social History Smoking Status: Never Smoker - Medications Home Medications: Home Medications Medication Instructions Recorded Confirmed Last Taken Type Docusate Sodium [Colace] 100 mg PO BID PRN #30 capsule 09/06/19 Unknown Rx Ferrous Sulfate [Feosol 325 MG tab] 325 mg PO DAILY #90 tablet 09/06/19 Unknown Rx Lidocain2.5%/Prilocai2.5% [Emla] 5 gm TP ONCE #1 tube 09/06/19 Unknown Rx NIFEdipine XL [Procardia Xl] 30 mg PO QDAY #30 tablet 09/10/19 Unknown Rx labetaloL [Labetalol 100mg TAB] 300 mg PO TID #90 tablet 09/10/19 Unknown Rx ED Physical Exam - General Limitations: No Limitations General appearance: alert, anxious, obese - Head Head exam: Present: atraumatic, normocephalic - Eye Eye exam: Present: normal appearance, PERRL, EOMI. Absent: nystagmus - ENT ENT exam: Present: normal exam, normal orophraynx, mucous membranes moist, normal external ear exam - Neck Neck exam: Present: normal inspection, full ROM. Absent: tenderness, meningism us - Respiratory Respiratory exam: Present: normal lung sounds bilaterally, chest wall tenderness. Absent: respiratory distress, wheezes, rales, rhonchi, stridor - Cardiovascular Cardiovascular Exam: Present: regular rate, normal rhythm, normal heart sounds. Absent: bradycardia, tachycardia, irregular rhythm, systolic murmur, diastolic murmur, rubs, gallop - GI/Abdominal GI/Abdominal exam: Present: soft. Absent: distended, tenderness, guarding, rebound, rigid, pulsatile mass - Extremities Exam Extremities exam: Present: normal inspection, full ROM, other (2+ pulses noted in the bilateral upper and lower extremities. There is no palpable cord. negative Homans sign. Muscular compartments are soft. The pelvis is stable.). Absent: pedal edema, joint swelling, calf tenderness - Back Exam Back exam: Present: normal inspection, full ROM. Absent: tenderness, CVA tenderness (R), CVA tenderness (L), muscle spasm, paraspinal tenderness, vertebral tenderness - Neurological Exam Neurological exam: Present: alert, other (there is no facial droop. The tongue is midline. The extraocular movements are intact bilaterally. Speaking in full sentences. Minimal elevation of the base of the tongue. There is 5 out of 5 strength in the bilateral upper and lower extremities, and sensation is intact to light touch in the bilateral upper and lower extremities. Appropriate insight.). Absent: motor sensory deficit - Psychiatric Psychiatric exam: Present: anxious - Skin Skin exam: Present: warm, dry, intact, normal color. Absent: rash ED Course Vital Signs 09/09/19 09/09/19 09/09/19 22:49 23:06 23:46 Temperature 98.0 F Pulse Rate 85 79 82 Respiratory 18 18 Rate Blood Pressure 163/101 140/86 Blood Pressure 140/76 [Right] O2 Sat by Pulse 99 99 Oximetry 09/10/19 09/10/19 00:06 01:27 Temperature Pulse Rate 86 79 Respiratory 20 19 Rate Blood Pressure Blood Pressure 150/97 158/92 [Right] O2 Sat by Pulse 98 98 Oximetry - Reevaluation(s) Reevaluation #1: 09/09/19 23:32 Differential diagnosis, including but not limited to: Anxiety, costochondritis, pneumonia, acute coronary syndrome, pulmonary embolism, preeclampsia Assessment and plan: 33-year-old female, , with headache, hypertension, nonspecific sensory neurologic symptoms, reproducible chest wall pain, unremarkable EKG. Not tachycardic, tachypneic or hypoxic. This is unlikely to be a pulmonary embolism. Family history is reviewed and appreciated, patient is low risk for major adverse cardiac event as per the heart score. We will treat her symptoms, initiate magnesium, initiate antihypertensive therapy, gynecologic consultation is requested. Discussed plan of care with patient who verbalizes understanding. Reevaluation #2: 09/09/19 23:42 Contacted gynecology and discussed the case with Dr. Mcfarland. He offers advises that this is very unlikely to be preeclampsia. However, he indicates he gynecology group can follow in consultation, if the patient meets criteria for hospitalization or admission. He is agreeable to initiation of labetalol therapy, as well as magnesium sulfate. 09/10/19 01:53 Reevaluation #3: 09/10/19 01:45 CT scan of the brain is negative for acute disease. CT scan of the chest is negative for acute disease. Once back to evaluate the patient and she is sleeping/resting comfortably on her stretcher, and in no acute distress. She states she is not having any pain or symptoms at this time. I discussed recommendations for admission for blood pressure control, cardiac risk stratification, and further evaluation of possible preeclampsia. The patient does not want to be admitted and she is going to sign out AGAINST MEDICAL ADVICE. The patient is alert and oriented 3, clinically sober, and free from distracting injury. Risks of leaving, including , disability, paralysis, loss of quality of life were discussed extensively with the patient. She is still declining admission at this time. Patient is counseled that she may return to the emergency room right away if and when she changes her mind. We stressed the importance of close outpatient follow-up with both her coating supervisor and outpatient PARK GUIDE. James Atkins RN , present for conversation 09/10/19 01:54 ED Medical Decision Making - Lab Data Result diagrams: 09/09/19 23:44 09/09/19 23:44 Vital Signs 09/09/19 09/09/19 22:49 23:06 Temperature 98.0 F Pulse Rate 85 79 Respiratory 18 18 Rate Blood Pressure 163/101 Blood Pressure 140/76 [Right] O2 Sat by Pulse 99 99 Oximetry - EKG Data -: EKG Interpreted by [facility] EKG shows normal: sinus rhythm Rate: normal - EKG Data When compared to previous EKG there are: previous EKG unavailable 09/09/19 23:34 There is no prior EKG available for comparison. The EKG shows a sinus rhythm, 75 bpm, normal axis, normal intervals, QTC within normal limits, the EKG is unremarkable, the EKG is not consistent with ST elevation myocardial infarction. - Radiology Data Radiology results: pending Critical care attestation.: If time is entered above; I have spent that time in minutes in the direct care of this critically ill patient, excluding procedure time. ED Disposition Clinical Impression: HTN (hypertension), Chest wall pain Disposition: DC- LEFT AGAINST MED ADVICE Is pt being admited?: No Does the pt Need Aspirin: No Condition: Stable Additional Instructions: As we discussed, you have left the hospital/emergency room AGAINST MEDICAL ADVICE. By leaving, you risked , disability, paralysis, permanent loss of quality of life. The ER is open 24 hours a day, 7 days a week. It never closes. Please return to the emergency room right away if and when you change your mind. If you decide not to return to the emergency room, please follow-up with the listed physician referrals as soon as possible. Do not take metformin medication for the next 2 days, if patient takes this medi cation. Do not breast feed for the next 24 hours. Closely follow up with your outpatient coating supervisor or PARK GUIDE doctor for elevated blood pressure. Referrals: DECLAN MCFARLAND MD [Staff Physician] - 3-5 Days [facility] [Provider Group] - 3-5 Days Forms: AMA Form
--- NOTE | 2019-09-10 00:08 | XRay Report ---
CHEST 2 VIEWS INDICATION / CLINICAL INFORMATION: Chest Pain. COMPARISON: None available. FINDINGS: SUPPORT DEVICES: None. HEART / MEDIASTINUM: Borderline enlarged. LUNGS / PLEURA: There may be slight venous congestion but no infiltrate, edema or effusion. No pneumo thorax. ADDITIONAL FINDINGS: No significant additional findings. IMPRESSION: 1. No acute findings. Signer Name: Jose Palma MD Signed: 09/10/2019 12:04 AM Workstation Name: [id number]
[2019-09-10 00:11] LABS: INR 0.9 (0.87-1.13)
[2019-09-10 00:27] LABS: Alanine Aminotransferase 14 units/L (7-56); Albumin 3.4 g/dL (3.9-5); BUN/Creatinine Ratio 10; Blood Urea Nitrogen 6 mg/dL (7-17); Hemolysis Index 2
[2019-09-10 00:38] LABS: Hematocrit 31.9 % (30.3-42.9); Hemoglobin 10.1 gm/dl (10.1-14.3); Mean Corpuscular HGB Conc 32 % (30-34); Mean Corpuscular Volume 74 fl (79-97); Platelet Count 356 K/mm3 (140-440); Red Blood Count 4.28 M/mm3 (3.65-5.03); Red Cell Distribution Width 19.8 % (13.2-15.2)
--- NOTE | 2019-09-10 01:20 | Cat Scan Report ---
Head CT without intravenous contrast INDICATION: Headache and hypertension COMPARISON: None FINDINGS: The ventricles are normal in size and position. No hemorrhage or extra-axial fluid collecti on. No edema or mass effect. No focal infarct seen. Portions of the sinuses visualized are clear. No skull fracture identified. IMPRESSION: Negative head CT Automated exposure control was utilized to diminish radiation dose Signer Name: Jose Palma MD Signed: 09/10/2019 1:16 AM Workstation Name: [id number]
--- NOTE | 2019-09-10 01:25 | Cat Scan Report ---
CT angiography of the chest with 2-D reconstructions INDICATION: chest pain and elevated d-dimer Thin section axial images were obtained as well as 2-D reformatted MIP images in all 3 planes FINDINGS: There is no hilar or mediastinal adenopathy. No pleural or pericardial effusion. Lung windo ws show no nodules, masses or infiltrates. There is no thoracic aortic aneurysm or dissection present . Routine axial images as well as 2-D reconstructions through the pulmonary arteries show no evidence of emboli. Small left renal calculi are incidentally noted. IMPRESSION: Negative chest CTA Automated exposure control was utilized to diminish radiation dose. Signer Name: Jose Palma MD Signed: 09/10/2019 1:20 AM Workstation Name: [id number]
[2019-09-10 02:02] VITALS: BP 151/89
== END 2019-09-10 02:06 | disposition left against medical advice (07) ==
LOC: ED 22:41
DX: R07.89 Other chest pain (principal); I10 Essential (primary) hypertension; Z79.899 Other long term (current) drug therapy
CPT/HCPCS: 36415; 70450; 71046; 71275; 80053; 82550; 83735; 84484; 85027; 85379; 85610; 93005; 93010; 96365; 96366; 96375; 99284; J2765; J3475; Q9967